=== PATIENT | female | born 1980 | race Caucasian/White ===

== ENCOUNTER 2022-07-13 15:11 | Outpatient (REF) | payer OTHER, SELFPAY ==
--- NOTE | ~2022-07-13 | MM_ITS ---
EXAMINATION: MM SCREENING DIGITAL BREAST TOMOSYNTHESIS, BILATERAL CLINICAL INFORMATION: Screening. Asymptomatic. No prior breast imaging. No known family history breast cancer. COMPARISON: None (current study represents initial baseline exam). TECHNIQUE: Digital breast tomosynthesis is performed in both the craniocaudal and mediolateral oblique views along with computer-aided detection (CAD). Synthesized 2D images are generated from the tomosynthesis. FINDINGS: There are scattered areas of fibroglandular density (ACR BI-RADS breast composition Category b). There are no significant masses, abnormal calcifications, or other abnormalities. The axilla and skin contours are unremarkable. MM/MM tomosynthesis screening BI IMPRESSION: No mammographic evidence of malignancy. ASSESSMENT: BI-RADS 1: Negative RECOMMENDATION: Routine annual mammography screening. This patient's information was entered into a reminder system with a target due date for their next mammogram.
== END 2022-07-13 15:12 | disposition home or self-care (01) ==
LOC: HO.MAMMO 15:11
PROVIDERS: PCP Student in an Organized Health Care Education/Training Program; Visit Provider Student in an Organized Health Care Education/Training Program
DX: Z12.31 Encounter for screening mammogram for malignant neoplasm of breast (principal)
CPT/HCPCS: 77063; 77067

== ENCOUNTER 2024-03-11 14:43 | Outpatient (REF) | payer OTHER, SELFPAY ==
--- NOTE | ~2024-03-11 | MM_ITS ---
EXAMINATION: MM SCREENING DIGITAL BREAST TOMOSYNTHESIS, BILATERAL CLINICAL INFORMATION: Screening. Asymptomatic. COMPARISON: Mammography: This study is compared with prior exams dating back to July 2022. TECHNIQUE: Digital breast tomosynthesis is performed in both the craniocaudal and mediolateral oblique views along with computer-aided detection (CAD). Synthesized 2D images are generated from the tomosynthesis. FINDINGS: There are scattered areas of fibroglandular density (ACR BI-RADS breast composition Category b). There are no significant masses, abnormal calcifications, or other abnormalities. MM/MM tomosynthesis screening BI IMPRESSION: No mammographic evidence of malignancy. ASSESSMENT: BI-RADS BI-RADS 1 - Negative RECOMMENDATION: Routine annual mammography screening. 1 year F/U This examination should not preclude the clinical evaluation of a suspicious palpable abnormality. This patient's information was entered into a reminder system with a target due date for their next mammogram.
== END 2024-03-11 14:44 | disposition home or self-care (01) ==
LOC: HO.MAMMO 14:43
PROVIDERS: PCP Internal Medicine; Visit Provider Midwife
DX: Z12.31 Encounter for screening mammogram for malignant neoplasm of breast (principal)
CPT/HCPCS: 77063; 77067

== ENCOUNTER → 2024-03-11 15:00 | Outpatient (BNV) | payer OTHER, SELFPAY | PROVIDERS: PCP Internal Medicine; Visit Provider Radiology Diagnostic Radiology | DX: Z12.31 Encounter for screening mammogram for malignant neoplasm of breast (principal) | CPT/HCPCS: 77063; 77067 ==

== ENCOUNTER 2024-08-15 08:49 | Outpatient (AMB) | payer OTHER, SELFPAY ==
--- NOTE | 2024-08-15 09:29 | MHC.OFFVIS ---
Vital Signs 08/15/24 09:32 Height 5 ft 3 in Weight 170 lb BMI 30.1 BP 118/66 Blood Pressure Location Lt brachial Position Sitting Pulse 94 Pulse Source Pulse Oximeter Pulse Oximetry (%) 98 Oxygen Delivery Method Room Air Intake Visit Reasons: Psoriatic Arthritis/CM apt Intake Note: Patient presents today for follow up on psoriatic arthistis. Allergies No Known Allergies Allergy (Verified 08/15/24 09:30) HPI HPI Psoriatic Arthritis/CM apt: Details: She recently had increased joint pains, which was treated with a short course of prednisone. She recalls receiving prednisone 5 mg tablets for a few days. She feels well at this time. Psoriasis has not gotten worse. She has a couple of lesions on her arms, which she treats with topical steroid. She follows with her rn transfer. No recent infections. Review of Systems Const All systems reviewed & are unremarkable except as noted in HPI and below Physical Exam Vital Signs: Last Vital Signs Pulse 94 08/15/24 09:32 BP 118/66 08/15/24 09:32 Pulse Ox 98 08/15/24 09:32 Oxygen Delivery Method Room Air 08/15/24 09:32 BMI result Body Mass Index 30.1 Const Other: General: Comfortable CVS: RRR Respiratory: clear to auscultation bilaterally. Good respiratory effort Skin: No lesions seen MSK: No tenderness on palpation. No synovitis. Good range of motion of upper extremities and lower extremities. Assessment & Plan Assessment & Plan (1) Psoriatic arthritis: Comment: Controlled on Cimzia 200 mg subcutaneous injection every other week Code(s): L40.50 - Arthropathic psoriasis, unspecified Category: Medical Plan: Labs for disease and drug monitoring ordered on high-risk medication Continue Cimzia 200 mg subcutaneous injection every other week [facility] Return to clinic in 3 months (2) Other senior living (current) drug therapy: Code(s): Z79.899 - Other senior living (current) drug therapy Category: Medical Plan: See above Orders: Orders Alanine Aminotransferase Today L40.50 - Arthropathic psoriasis, unspecified, Z79.899 - Other senior living (current) drug therapy Aspartate Amino Transferase Today L40.50 - Arthropathic psoriasis, unspecified, Z79.899 - Other termite renewal inspector (current) drug therapy T Spot TB Today L40.50 - Arthropathic psoriasis, unspecified, Z79.899 - Other termite renewal inspector (current) drug therapy Complete Blood Count Auto Diff Today L40.50 - Arthropathic psoriasis, unspecified, Z79.899 - Other senior living (current) drug therapy Creatinine Today L40.50 - Arthropathic psoriasis, unspecified, Z79.899 - Other senior living (current) drug therapy Erythrocyte Sedimentation Rate Today L40.50 - Arthropathic psoriasis, unspecified, Z79.899 - Other termite renewal inspector (current) drug therapy Hepatitis B,C Profile Today L40.50 - Arthropathic psoriasis, unspecified, Z79.899 - Other termite renewal inspector (current) drug therapy C Reactive Protein Today L40.50 - Arthropathic psoriasis, unspecified, Z79.899 - Other senior living (current) drug therapy Coding Level of Care Code Est Pt Level 4 (82067) Complex EM visit Add On G2211 Diagnoses Psoriatic arthritis L40.50 Other termite renewal inspector (current) drug therapy Z79.899
[2024-08-15 09:32] VITALS: BP 118/66; PULSE 94; O2SAT 98; BMI 30.1
== END 2024-08-15 09:37 | disposition home or self-care (01) ==
PROVIDERS: PCP Internal Medicine; Visit Provider Internal Medicine Rheumatology
DX: L40.50 Arthropathic psoriasis, unspecified (principal); Z79.899 Other long term (current) drug therapy
CPT/HCPCS: 99214

== ENCOUNTER 2024-08-15 08:49 | Outpatient (REF) | payer OTHER, SELFPAY ==
[2024-08-15 13:49] LABS: MANUAL DIFF FLAG NO
[2024-08-15 14:42] LABS: Basophils Percent Auto 0.2 % (0-2); Eosinophils Percent Auto 0.2 % (0-4); Hematocrit 36.5 % (37.0-47.0); Hemoglobin 12.2 g/dl (12.0-16.0); Imm Gran Abs Auto 0.01 X10*3/uL (0.00-0.03); Imm Gran Pct Auto 0.2 % (0.0-0.4); Lymphocytes Absolute Auto 1.9 X10*3/uL (1.2-4.9); Lymphocytes Percent Auto 32.7 % (20-40); Mean Corpuscular HGB Conc 33.4 g/dl (31.0-35.0); Mean Corpuscular Hemoglobin 32.3 pg (27.0-33.0); Mean Corpuscular Volume 96.6 fL (80.0-98.0); Mean Platelet Volume 10.3 fL (9.4-12.3); Monocytes Absolute Auto 0.5 X10*3/uL (0.1-1.2); Monocytes Percent Auto 8.5 % (2-11); Neutrophils Absolute Auto 3.4 x10*3/uL (2.0-8.3); Neutrophils Percent Auto 58.2 % (45-73); Platelet Count 205 X10*3/uL (160-400); Red Blood Count 3.78 X10*6/uL (4.20-5.50); White Blood Count 5.9 X10*3/uL (4.8-10.8)
[2024-08-15 15:07] LABS: Alanine Aminotransferase 16 U/L (0-31); Aspartate Amino Transferase 26 U/L (5-31); C Reactive Protein < 0.10 mg/dL (< or = 0.50); Estimated Glomerular Filt Rate > 60
[2024-08-15 16:01] LABS: Erythrocyte Sedimentation Rate 16 MM/HR (0-20)
[2024-08-16 03:38] LABS: HBS Num1 12.05 mIU/mL (0-7.99); Hepatitis B Core Antibody Nonreactive (Nonreactive); Hepatitis B Surface Antigen Negative (Negative); ~HepC Num1 0.27 S/CO (0.00-0.79); ~Hepatitis B Surface Antibody REACTIVE (Nonreactive); ~Hepatitis C Antibody Nonreactive (Nonreactive)
[2024-08-18 07:09] LABS: TS Negative Control Passed; TS Panel A 0; TS Panel B 0; TS Positive Control Passed; TSpotTB Negative (Negative)
== END 2024-08-15 08:50 | disposition home or self-care (01) ==
LOC: HO.LAB 08:49
PROVIDERS: PCP Internal Medicine; Visit Provider Internal Medicine Rheumatology
DX: L40.50 Arthropathic psoriasis, unspecified (principal); Z79.899 Other long term (current) drug therapy
CPT/HCPCS: 36415; 82565; 84450; 84460; 85025; 85652; 86140; 86481; 86704; 86706; 86803; 87340

== ENCOUNTER 2024-11-13 14:02 | Outpatient (AMB) | payer OTHER, SELFPAY ==
--- NOTE | 2024-11-13 14:04 | MHC.OFFVIS ---
Vital Signs 11/13/24 14:05 Height 5 ft 3 in Weight 174 lb 13.225 oz BMI 31.0 BP 140/80 H Blood Pressure Location Lt brachial Position Sitting Pulse 78 Pulse Source Pulse Oximeter Pulse Oximetry (%) 98 Oxygen Delivery Method Room Air Intake Visit Reasons: 3 mo follow up Intake Note: Patient presents today for follow up on psoriatic arthistis. Allergies No Known Allergies Allergy (Verified 11/13/24 14:05) HPI HPI 3 mo follow up: Details: She feels well. She has developed bumps on her left arm extensor surface of unclear etiology. Topical steroid is not effective. No recent infections. She has seen [facility] in the past who has prescribed topical steroid for psoriasis. At this time her arthritis and psoriasis is under control. Review of Systems Const All systems reviewed & are unremarkable except as noted in HPI and below Physical Exam Vital Signs: Last Vital Signs Pulse 78 11/13/24 14:05 BP 140/80 H 11/13/24 14:05 Pulse Ox 98 11/13/24 14:05 Oxygen Delivery Method Room Air 11/13/24 14:05 BMI result Body Mass Index 31.0 Const Other: General: Comfortable CVS: RRR Respiratory: clear to auscultation bilaterally. Good respiratory effort Skin: Small scaly patches left external surface of elbow. She has multiple papules on extensor surface of forearm left side. MSK: No tenderness on palpation of any joint. No synovitis or dactylitis. Good range of motion of upper extremities and lower extremities. Assessment & Plan Assessment & Plan (1) Psoriatic arthritis: Comment: Controlled on Cimzia and methotrexate. Rheumatology history: Psoriatic arthritis. She had developed plantar palmar pustulosis. Enbrel 5700-2964 effective but discontinued due to . Failed Humira 2016 and methotrexate 2018. Cimzia and methotrexate 2019- Code(s): L40.50 - Arthropathic psoriasis, unspecified Category: Medical Plan: Labs for disease and drug monitoring ordered on high-risk medication Continue methotrexate 20 mg once weekly Continue folic acid 1 mg daily Continue Cimzia 200 mg subcutaneous injection every other week Return to clinic in 3 months (2) Other oysterman (current) drug therapy: Code(s): Z79.899 - Other oysterman (current) drug therapy Category: Medical Plan: See above Orders: Orders Alanine Aminotransferase Today Z79.60 - senior living (current) use of unspecified immunomodulators and immunosuppressants Creatinine Today Z79.60 - senior living (current) use of unspecified immunomodulators and immunosuppressants Erythrocyte Sedimentation Rate Today L40.50 - Arthropathic psoriasis, unspecified C Reactive Protein Today L40.50 - Arthropathic psoriasis, unspecified, Z79.899 - Other [facility] (current[facility] drug therapy Aspartate Amino Transferase Today Z79.60 - senior living (current) use of unspecified immunomodulators and immunosuppressants Complete Blood Count Auto Diff Today Z79.60 - joint terminal attack controller (current) use of unspecified immunomodulators and immunosuppressants Medications: Refilled Cimzia (certolizumab pegol) 200 mg subcut Q2W 1 ea 2RF NS methotrexate sodium 20 mg (8 x 2.5 mg) PO QWEEK 96 tabs 0RF Coding Level of Care Code Est Pt Level 4 (63333) Complex EM visit Add On G2211 Diagnoses Psoriatic arthritis L40.50 Other oysterman (current) drug therapy Z79.895
[2024-11-13 14:05] VITALS: BP 140/80; PULSE 78; O2SAT 98; BMI 31.0
--- OUTSIDE RECORDS SUMMARY | 2024-11-13 16:55 | XMS_ITS | Clinical Summary ---
Author Organization [facility] Address [address] [place] [address] Care Team Providers Care Registration Manager Name Role Phone Unavailable Primary Care Provider Unavailabl e Social History Tobacco Use Types Packs/Day Years Used Date Smoking Tobacco: Never Assessed Sex and Gender Information Value Date Recorded Sex Assigned at Not on file Gender Identity Not on file Sexual Orientation Not on file Plan of Treatment Health Maintenance Due Date Last Done Comments Hepatitis C Virus Screening 1982 HIV Screening 1995 DTaP/Tdap/Td Vaccines (1 - Tdap) 2001 Hepatitis B Vaccines (1 of 3 - 19+ 3-dose series) 2001 COVID-19 Vaccine (2023-2 5 season) 2024 HPV Vaccines Aged Out No longer eligi ble based on patient's age to complete this topic Pneumococcal Vaccine: Pediat gee (0-5 Years) and At-Risk Patients (6 to 49 Years) Aged Out No longer eligible b ased on patient's age to complete this topic
--- OUTSIDE RECORDS SUMMARY | 2024-11-13 16:55 | XMS_ITS | Clinical Summary ---
Author Organization [facility] [address] Address [address] [place] [address] Phone Care Team Providers Care Marketing Designer Name Role Phone Yesika Jordan MD Primary Care Provider [phone] Allergies No known active allergies Medications albuterol HFA (PROAIR HFA ; PROVENTIL HFA ; VENTOLIN HFA) 90 mcg/actuation inhaler Inhale 2 Puffs into the lungs every 4 hours as needed for Cough or Wheezing. 01/11/20 24 Active celecoxib (CeleBREX) 200 mg capsule 12/15/19 24 Active certolizumab pegol (Cimzia) 400 mg/2 mL (200 mg/mL x 2) syringe kit Inject 200 mg into the skin every 14 days. 08/04/20 21 Active certolizumab pegol (Cimzia) 400 mg/2 mL (200 mg/mL x 2) syringe kit 07/04/20 23 Active cetirizine (ZyrTEC) 10 mg tablet TAKE 1 TABLET BY MOUTH EVERY DAY 09/15/19 24 Active folic acid (FOLVITE) 1 mg tablet 01/03/20 24 Active LORazepam (ATIVAN) 0.5 mg tablet Take 1-2 Tablets by mouth every 6 hours as needed for Anxiety. 01/11/20 24 Active methotrexate 2.5 mg tablet 01/09/20 24 Active sertraline (ZOLOFT) 100 mg tablet TAKE 1 TABLET BY MOUTH DAILY. 06/06/20 24 Active tapinarof (Vtama) 1 % cream Apply topically. Active levonorgestreL 17.5 mcg/24 hr (5 yrs) 19.5 mg intrauterine device IUD by Intrauterine route. Active methocarbamoL (ROBAXIN) 500 mg tablet Take 1-2 tablets (500-1,000 mg total) by mouth at bedtime as needed for muscle spasms. 60 tablet 2 10/15/19 25 Active methocarbamoL (ROBAXIN) 500 mg tablet TAKE 1-2 TABLETS (500-1000MG) BY MOUTH AT BEDTIME NEEDED FOR MUSCLE PAIN 60 tablet 2 07/19/20 24 2024 Discontinued Active Problems Problem Noted Date Diagnosed Date Psoriatic arthritis 06/07/2024 Overview (06/07/2024): Enbrel through dermatology 2014-, stopped due to . Humira started 2016, ineffective. Methotrexate started 2018, ineffective and stopped. , restart Enbrel through rheumatology Hepatitis B core antibody positive 06/17/2021 Overview (06/07/2024): 06/2021- followup recheck ordered. Generalized anxiety disorder with panic attacks 02/28/2020 Situational anxiety 10/14/2016 Cervical radiculitis 07/13/2016 Overview (06/07/2024): c5-6 disc herniation Asthma, mild intermittent 08/19/2011 Encounters Date Type Department Care Team Description 09/18/2024 8:45 AM EST Office Visit Adult Medicine [address] [address] Yesika Jordan MD Mild intermittent asthma, unspecified whether complicated (Primary Dx); Psoriatic arthritis ([facility]/HCC); Hypertriglyceridemia from Last 3 Months Immunizations Name Administration Dates Next Due Influenza Quadravalent, MDCK , 0.5ml, preservative free (Flucelvax) 6mo and older 06/11/2018 Influenza trivalent, with pr eservative (Fluzone; Afluria) 6mo and older 06/22/2024,07/06/2020 Influenza, Unspecified 07/06/2023,07/06/2020 Moderna SARS-CoV-2 COVID-19, mRNA, LNP-S, preservative free 08/22/2021 Td Tetanus diptheria (Tdvax) 7yo and older 06/11 Tdap Tetanus diptheria acell ular pertussis (Boostrix; Adacel) 7yo and older 09/18/2017 Surgical History Surgery Date Site/Laterality Comments COLONOSCOPY 2010 PROCEDURE: ME COLONOSCOPY STOMA DX INCLUDING COLLJ SPEC SPX; COMMENT: juvenile polyps hx Medical History Medical History Date Comments 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 Mild intermittent asthma DX:Mild intermittent asthma Psoriasis 08/19/2011 DX:Psoriasis Psoriatic arthritis (CMS/HCC) DX :Psoriatic arthritis (HCC) Cervical radiculitis 07/13/2016 DX:Cervical radiculitis; COMMENT: c5-6 disc herniation Family History Medical History Relation Name Comments Crohn's disease Brother Hypertension Brother Other: Psoriasis Maternal Grandfather Depression Mother Hypertension Mother Hypertension Sister Relation Name Status Comments Brother Alive crohns disease Father Alive diabetes Maternal Grandfather [place] Maternal Grandmother Alive heart p roblems Mother Alive high chol, HTN, borderline diabetes > resolved with weight loss Paternal Grandfather unknown Paternal Grandmother Alive unknown Sister Alive healthy Son Alive healthy Social History Tobacco Use Types Packs/Day Years Used Date Smoking Tobacco: Former Cigarettes Q uit: 09/11/2017 Smokeless Tobacco: Never Tobacco Cessation:Counseling Given: Not Answered Alcohol Use Standard Drinks/Week Comments Yes 1.7 (1 standard drink = 0.6 oz p ure alcohol) Comments Unknown Sex and Gender Information Value Date Recorded Sex Assigned at Not on file Legal Sex Female 12:28 AM EST Gender Identity Not on file Sexual Orientation Not on file Obstetrics History Last Filed Vital Signs Vital Sign Reading Time Taken Comments Blood Pressure 124/72 09/18/2024 8:39 AM EST Pulse 97 09/18/2024 8:39 AM EST Temperature 36.9 ??C (98.5 ??F) 09/18/2024 8:39 AM ES T Respiratory Rate 12 09/18/2024 8:37 AM EST Oxygen Saturation - - Inhaled Oxygen Concentration - - Weight 78 kg (172 lb) 09/18/2024 8:37 AM EST Height 160 cm (5' 3 ) 09/18/2024 8:37 AM EST Body Mass Index 30.47 09/18/2024 8:37 AM EST Plan of Treatment Upcoming Encounters Date Type Department Care Team (Late st Contact Info) Description 07/17/2025 8:00 AM EST Office Visit Adult Medicine [facility] [address] [place] [address] Yesika Jordan MD [address] [facility] [place] [address] [id number] Health Maintenance Due Date Last Done Comments Hepatitis B Vaccines (1 of 3 - 19+ 3-dose series) 2001 Pneumococcal Vaccine: Pediatrics (0 to 5 Years) and At-Risk Patients (6 to 64 Years) (1 of 2 - PCV) 2001 Colorectal Cancer Screening: Colonoscopy 08/20/2022 02/15/2011 Hepatitis C Screening 08/20/2022 Social Influencers of Health Screening 08/20/2022 COVID-19 Vaccine ( season) 2024 09/08/2021, 08/22/2021, 12/04/2020, Additional history exists Depression Screening 07/16/2025 07/16/2024 Cervical Cancer Screening: Pap Smear 10/17/2025 10/17/2022, 07/22/2014, 07/22/2014 Breast Cancer Screening 03/04/2026 03/04/2024 DTaP,Tdap,and Td Vaccines (3 - Td or Tdap) 09/18/2027 09/18/2017, 06/11/2007 Cholesterol Screening (Lipid Panel) 07/16/2029 07/16/2024 HIV Screening Completed 08/20/2019 Influenza Vaccine Completed 06/22/2024, , 07/06/2023, Additional history exists HIB Vaccines Aged Out No longer eligi ble based on patient's age to complete this topic HPV Vaccines Aged Out No longer eligi ble based on patient's age to complete this topic Hepatitis A Vaccines Aged Out No long er eligible based on patient's age to complete this topic IPV Vaccines Aged Out No longer eligi ble based on patient's age to complete this topic MMR Vaccines Aged Out No longer eligi ble based on patient's age to complete this topic Meningococcal ACWY Vaccine Aged Out N o longer eligible based on patient's age to complete this topic Meningococcal B Vacine Aged Out No lo nger eligible based on patient's age to complete this topic RSV Immunization Patients Under 20 months Aged Out No longer eligible based on patient's age to complete this topic Varicella Vaccines Aged Out No longer eligible based on patient's age to complete this topic Procedures Procedure Name Priority Date/Time Associated Diagnosis Comments LIPID PANEL WITH REFLEX TO DIRECT LDL Routine 07/16/2024 10:25 AM EST Screening for endocrine, metabolic, and immunity disorder HIV SCREENING Routine 08/20/2019 HPV Routine 07/22/2014 COLONOSCOPY Routine 02/15/2011 from Last 3 Months or Most Recently Relevant to Health Maintenance Results * (ABNORMAL) Lipid panel with reflex to direct LDL (07/16/2024 10:25 AM EST) Cholesterol 169 0 - 200 mg/dL LAB CHEMISTRY METHOD 07/16/2024 4:17 PM [facility] Triglycerides 225(H) 0 - 150 mg/dL LAB CHEMISTRY METHOD 07/16/2024 4:17 PM [facility] HDL 50 >=40 mg/dL LAB CHEMISTRY METHOD 07/16/2024 4:17 PM [facility] LDL Calculated 74 0 - 100 mg/dL LAB CHEMISTRY METHOD 07/16/2024 4:17 PM [facility] VLDL Cholesterol Yovanny 45 mg/dL LAB CHEMISTRY METHOD 07/16/2024 4:17 PM [facility] Non HDL Chol. (LDL+VLDL) 119 <145 mg/dL LAB CHEMISTRY METHOD 07/16/2024 4:17 PM [facility] Chol/HDL Ratio 3.4 0.0 - 4.4 LAB CHEMISTRY METHOD 07/16/2024 4:17 PM [facility] Blood Venous blood specimen / Unknown Venipuncture / Unknown 07/16/2024 10:25 AM EST 07/16/2024 10:25 AM EST Xin ALDRICH LAB BLOOD ORDERABLES Final Result [facility] [address] [place] [address], [place] [phone] * HIV Screening (08/20/2019) HIV Screening Abstracted Historical Provider HEALTH MAINTENANCE Final Result * Cervical Cancer Screening: HPV (07/22/2014) Cervical Cancer Screening: HPV No interpreta tion,abstr acted Historical Provider HEALTH MAINTENANCE Final Result * Colonoscopy (02/15/2011) Colonoscopy No interpreta tion,abstr acted Anatomical Region Laterality Modality Other Historical Provider HEALTH MAINTENANCE Final Result from Last 3 Months or Most Recently Relevant to Health Maintenance Insurance [place] [address] Care Teams Marketing Designer Relationship Specialty Start Date End Date Yesika Jordan MD [address] [place] [address] PCP - General 03/07/24
== END 2024-11-13 14:43 | disposition home or self-care (01) ==
PROVIDERS: PCP Internal Medicine; Visit Provider Internal Medicine Rheumatology
DX: L40.50 Arthropathic psoriasis, unspecified (principal); Z79.899 Other long term (current) drug therapy
CPT/HCPCS: 99214

== ENCOUNTER 2024-11-13 14:02 | Outpatient (REF) | payer OTHER, SELFPAY ==
--- OUTSIDE RECORDS SUMMARY | 2024-11-13 17:53 | XMS_ITS | Clinical Summary ---
Author Organization [facility] [address] [facility] [address] Address [address] [place] [address] Phone Care Team Providers Care Assembler Surgical Garment Name Role Phone Yesika Jordan MD Primary Care Provider [phone]- [phone] Allergies No known active allergies Medications albuterol [...] 8:45 AM EST Office Visit Adult Medicine [address] [address] Yesika Jrodan MD Mild intermittent asthma, unspecified whether complicated (Primary Dx); Psoriatic arthritis ([facility]/HCC); Hypertriglyceridemia from Last 3 Months Immunizations Name [...] Surgery Date Site/Laterality Comments COLONOSCOPY 2010 PROCEDURE: [place] COLONOSCOPY STOMA DX INCLUDING COLLJ SPEC SPX; [...] crohns disease Father Alive diabetes Maternal Grandfather [place] Maternal Grandmother Alive heart p roblems Mother [...] 8:00 AM EST Office Visit Adult Medicine [facility] [address] [facility] [place] [address] Yesika Jordan MD [address] [facility] [place] [address] Health Maintenance Due Date Last Done Comments [...] mg/dL LAB CHEMISTRY METHOD 07/16/2024 4:17 PM [facility] Triglycerides 225(H) 0 - 150 mg/dL LAB CHEMISTRY METHOD 07/16/2024 4:17 PM [facility] HDL 50 >=40 mg/dL LAB CHEMISTRY METHOD 07/16/2024 4:17 PM [facility] LDL Calculated 74 0 - 100 mg/dL LAB CHEMISTRY METHOD 07/16/2024 4:17 PM [facility] VLDL Cholesterol Yovanny 45 mg/dL LAB CHEMISTRY METHOD 07/16/2024 4:17 PM [facility] Non HDL Chol. (LDL+VLDL) 119 <145 mg/dL LAB CHEMISTRY METHOD 07/16/2024 4:17 PM [facility] Chol/HDL Ratio 3.4 0.0 - 4.4 LAB CHEMISTRY METHOD 07/16/2024 4:17 PM [facility] Blood Venous blood specimen / Unknown Venipuncture / Unknown 07/16/2024 10:25 AM EST 07/16/2024 10:25 AM EST Xin ALDRICH LAB BLOOD ORDERABLES Final Result [facility] [address] [place] [address], [place] [phone] * HIV Screening (08/20/2019) HIV Screening Abstracted [...] Most Recently Relevant to Health Maintenance Insurance [facility] Care Teams Assembler Surgical Garment Relationship Specialty Start Date End Date Yesika Jordan MD [address] [place] [address] PCP - General 03/07/24
--- OUTSIDE RECORDS SUMMARY | 2024-11-13 17:53 | XMS_ITS | Clinical Summary ---
Author Organization [facility] Address [address] [place] [address] Care Team Providers Care Windows Laptop Technician Name Role Phone Unavailable Primary Care Provider [...]
[2024-11-13 17:55] LABS: MANUAL DIFF FLAG NO
[2024-11-13 18:13] LABS: Alanine Aminotransferase 12 U/L (0-31); Aspartate Amino Transferase 21 U/L (5-31); C Reactive Protein < 0.10 mg/dL (< or = 0.50); Estimated Glomerular Filt Rate > 60
[2024-11-13 18:30] LABS: Basophils Percent Auto 0.2 % (0-2); Eosinophils Percent Auto 0.2 % (0-4); Hemoglobin 11.7 g/dl (12.0-16.0); Imm Gran Abs Auto 0.01 X10*3/uL (0.00-0.03); Imm Gran Pct Auto 0.2 % (0.0-0.4); Lymphocytes Absolute Auto 1.9 X10*3/uL (1.2-4.9); Lymphocytes Percent Auto 45.6 % (20-40); Mean Corpuscular HGB Conc 33.4 g/dl (31.0-35.0); Mean Corpuscular Hemoglobin 32.6 pg (27.0-33.0); Mean Corpuscular Volume 97.5 fL (80.0-98.0); Mean Platelet Volume 10.8 fL (9.4-12.3); Monocytes Absolute Auto 0.5 X10*3/uL (0.1-1.2); Monocytes Percent Auto 11.7 % (2-11); Neutrophils Absolute Auto 1.7 x10*3/uL (2.0-8.3); Neutrophils Percent Auto 42.1 % (45-73); Platelet Count 198 X10*3/uL (160-400); Red Blood Count 3.59 X10*6/uL (4.20-5.50); Red Cell Distribution Width 12.5 % (11.0-16.0); White Blood Count 4.1 X10*3/uL (4.8-10.8)
[2024-11-13 18:50] LABS: Erythrocyte Sedimentation Rate 11 MM/HR (0-20)
== END 2024-11-13 14:03 | disposition home or self-care (01) ==
LOC: HO.HKASLDS 14:02
PROVIDERS: PCP Internal Medicine; Visit Provider Internal Medicine Rheumatology
DX: L40.50 Arthropathic psoriasis, unspecified (principal); Z79.60 Long term (current) use of unspecified immunomodulators and immunosuppressants; Z79.899 Other long term (current) drug therapy
CPT/HCPCS: 36415; 82565; 84450; 84460; 85025; 85652; 86140

== ENCOUNTER 2025-01-22 14:53 | Outpatient (AMB) | payer OTHER, SELFPAY ==
--- OUTSIDE RECORDS SUMMARY | 2025-01-22 14:56 | XMS_ITS | Clinical Summary ---
Author Organization [facility] Address [address] [place] [address] Care Team Providers Care Chicken Picker Name Role Phone Unavailable Primary Care Provider Unavailabl e Social History Tobacco Use Types Packs/Day Years Used Date Smoking Tobacco: Never Assessed Comments Unknown Sex and Gender Information Value Date Recorded Sex Assigned at Not on file Legal Sex Female 11:32 AM EDT Gender Identity Not on file Sexual Orientation [...]
--- OUTSIDE RECORDS SUMMARY | 2025-01-22 14:56 | XMS_ITS | Clinical Summary ---
Author Organization [facility] [address] [facility] l[address] Address [address] [place] [address] Phone Care Team Providers Care Auto Wheel Alignment Specialist Name Role Phone Yesika Jordan MD Primary Care Provider Allergies No known active allergies Medications albuterol HFA (PROAIR HFA ; PROVENTIL HFA ; VENTOLIN HFA) 90 mcg/actuation inhaler Inhale 2 Puffs into the lungs every 4 hours as needed for Cough or Wheezing. 4 Active celecoxib (CeleBREX) 200 mg capsule 4 Active certolizumab pegol (Cimzia) 400 mg/2 mL (200 mg/mL x 2) syringe kit Inject 200 mg into the skin every 14 days. 1 Active certolizumab pegol (Cimzia) 400 mg/2 mL (200 mg/mL x 2) syringe kit 3 Active cetirizine (ZyrTEC) 10 mg tablet TAKE 1 TABLET BY MOUTH EVERY DAY 4 Active folic acid (FOLVITE) 1 mg tablet 4 Active LORazepam (ATIVAN) 0.5 mg tablet Take 1-2 Tablets by mouth every 6 hours as needed for Anxiety. 4 Active methotrexate 2.5 mg tablet 4 Active tapinarof (Vtama) 1 % cream Apply topically. Act maira levonorgestreL 17.5 mcg/24 hr (5 yrs) 19.5 mg intrauterine device IUD by Intrauterine route. Active methocarbamoL (ROBAXIN) 500 mg tablet Take 1-2 tablets (500-1,000 mg total) by mouth at bedtime as needed for muscle spasms. 60 tablet 2 5 Active sertraline (ZOLOFT) 100 mg tablet TAKE ONE (1) TABLET BY MOUTH EVERY DAY 90 tablet 1 5 Active Active Problems Problem Noted Date Diagnosed Date Psoriatic arthritis ([facility] V24, [facility] V28) 0 06/07/2024 Overview (06/07/2024): Enbrel through dermatology 2014-, stopped due to . Humira started 2016, ineffective. Methotrexate started 2018, ineffective and stopped. , restart Enbrel through rheumatology Hepatitis B core antibody positive 06/17/2021 Overview (06/07/2024): 06/2021- followup recheck ordered. 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 Mild intermittent asthma DX:Mild intermittent asthma Psoriasis 08/19/2011 DX:Psoriasis Psoriatic arthritis (CMS/HCC V24, CMS/HCC V28) DX:Psoriatic arthritis (HCC) Cervical radiculitis 07/13/2016 DX:Cervical radiculitis; COMMENT: c5-6 disc herniation Family History Medical History Relation Name Comments Crohn's disease Brother Hypertension Brother Other: Psoriasis Maternal Grandfather Depression Mother Hypertension Mother Hypertension Sister Relation Name Status Comments Brother Alive crohns disease Father Alive diabetes Maternal Grandfather [place] Maternal Grandmother Alive heart p roblems Mother [...] 8:00 AM EST Office Visit Adult Medicine [facility] [address] [place] [address] Yesika Jordan MD [address] [place], [place] Health Maintenance Due Date Last Done Comments Hepatitis B Vaccines (1 of 3 - 19+ 3-dose series) 2001 Pneumococcal Vaccine: Pediatrics (0 to 5 Years) and At-Risk Patients (6 to 64 Years) (1 of 2 - PCV) 2001 Hepatitis C Screening 08/20/2022 Social Influencers of Health Screening 08/20/2022 COVID-19 Vaccine ( season) 2024 09/08/2021, 08/22/2021, 12/04/2020, Additional history exists Depression Screening 07/16/2025 07/16/2024 Cervical Cancer Screening: Pap Smear 10/17/2025 10/17/2022, 07/22/2014, 07/22/2014 Breast Cancer Screening 03/04/2026 03/04/2024 DTaP,Tdap,and Td Vaccines (3 - Td or Tdap) 09/18/2027 09/18/2017, 06/11/2007 Cholesterol Screening (Lipid Panel) 07/16/2029 07/16/2024 Colorectal Cancer Screening: Colonoscopy 01/16/2035 01/16/2025, 02/15/2011 HIV Screening Completed 08/20/2019 Influenza Vaccine Completed [...] age to complete this topic Meningococcal B Vaccine Aged Out No l onger eligible based on patient's age to complete this topic RSV Immunization Patients Under 20 months Aged Out No longer eligible based on patient's age to complete this topic Varicella Vaccines Aged Out No longer eligible based on patient's age to complete this topic Procedures Procedure Name Priority Date/Time Associated Diagnosis Comments EXTERNAL COLONOSCOPY REPORT Routine 01/16/2025 12:55 PM EDT EXTERNAL CLINICAL LAB Routine 11/15/2024 8:13 AM EST LIPID PANEL WITH REFLEX TO DIRECT LDL Routine 07/16/2024 10:25 AM EST Screening for endocrine, metabolic, and immunity disorder HIV SCREENING Routine 08/20/2019 HPV Routine 07/22/2014 from Last 3 Months or Most Recently Relevant to Health Maintenance Results * External Colonoscopy Report (01/16/2025 12:55 PM EDT) Anatomical Region Laterality Modality Endoscopy us Historical Provider GI~PROCEDURE ORDERABLES F inal Result * External clinical lab (11/15/2024 8:13 AM EST) us Historical Provider LAB BLOOD ORDERABLES Maggy l Result * (ABNORMAL) Lipid panel with reflex to direct LDL (07/16/2024 10:25 AM EST) Cholesterol 169 0 - 200 mg/dL LAB CHEMISTRY METHOD 07/16/2024 4:17 PM [facility] Triglycerides 225(H) 0 - 150 mg/dL LAB CHEMISTRY METHOD 07/16/2024 4:17 PM [facility] HDL 50 >=40 mg/dL LAB CHEMISTRY METHOD 07/16/2024 4:17 PM [facility] LDL Calculated 74 0 - 100 mg/dL LAB CHEMISTRY METHOD 07/16/2024 4:17 PM [facility] VLDL Cholesterol Yovanny 45 mg/dL LAB CHEMISTRY METHOD 07/16/2024 4:17 PM [facility] Non HDL Chol. (LDL+VLDL) 119 <145 mg/dL LAB CHEMISTRY METHOD 07/16/2024 4:17 PM [facility] Chol/HDL Ratio 3.4 0.0 - 4.4 LAB CHEMISTRY METHOD 07/16/2024 4:17 PM [facility] Blood Venous blood specimen / Unknown Venipuncture / Unknown 07/16/2024 10:25 AM EST 07/16/2024 10:25 AM EST Xin ALDRICH LAB BLOOD ORDERABLES Final Result [facility] [address] [place] [address], [place] [phone] * HIV Screening (08/20/2019) HIV Screening Abstracted Historical Provider HEALTH MAINTENANCE Final Result * Cervical Cancer Screening: HPV (07/22/2014) Pathologist [facility] Cervical Cancer Screening: HPV No interpreta tion,abstr acted Historical Provider HEALTH MAINTENANCE Final Result from Last 3 Months or Most Recently Relevant to Health Maintenance Insurance [place] [employer] [facility] Care Teams Auto Wheel Alignment Specialist Relationship Specialty Start Date End Date Yesika Jordan MD [address] [place] [address] PCP - General 03/07/24
--- NOTE | 2025-01-22 15:02 | MHC.PC.OV ---
Vital Signs 01/22/25 15:09 Height 5 ft 2.8 in Weight 171 lb BMI 30.5 BP 106/74 Blood Pressure Location Rt brachial Position Sitting Pulse 82 Pulse Source Pulse Oximeter Pulse Oximetry (%) 98 Oxygen Delivery Method Room Air Intake Visit Reasons: Est. Care Intake Note: New patient visit. Production Miner Required: No Allergies No Known Allergies Allergy (Verified 01/22/25 15:04) Medication List - Last Reconciled 01/22/25 by Brissa Garcia PA-C albuterol sulfate 90 mcg/actuation 2 puffs inhalation Q4H PRN calcipotriene 0.005% 1 appl topical QAM cetirizine 10 mg PO DAILY Cimzia (certolizumab pegol) 200 mg subcut Q2W NS folic acid 1 mg PO DAILY lorazepam 0.5 - 1 mg PO Q6H PRN methocarbamol 500 mg PO BID methotrexate sodium 20 mg (8 x 2.5 mg) PO QWEEK mometasone 0.1% appl topical sertraline mg PO Tobacco use date assessed: 01/22/25 Dental Screening Dental Screen Date: 01/22/25 Did you have a dental visit in the last 12 months?: Yes Did you have a dental problem in the last 6 months where you did not have access to dental care?: No Was dental information given to patient?: Patient has dentist HPI Est. Care HPI Details Patient is a 44-year-old female with a significant past medical history of psoriatic arthritis, anxiety and depression, presenting today to [facility]. She is transferring from [place]. CV: Blood pressure today in the office is 106/74. Psych: On sertraline and lorazepam as needed. She states it is mostly anxiety. Denies any SI/HI. Rheum: Follows with Rheumatology and [facility]. 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 1. Little interest or pleasure in doing things: not at all 2. Feeling down, depressed, or hopeless: not at all 3. Trouble falling or staying asleep, or sleeping too much: several days 4. Feeling tired or having little energy: not at all 5. Poor appetite or overeating: not at all 6. Feeling bad about yourself - or that you are a failure or have let yourself or your family down: not at all 7. Trouble concentrating on things, such as reading the newspaper or watching television: not at all 8. Moving or speaking so slowly that other people could have noticed. Or the opposite - being so fidgety or restless that you have been moving around a lot more than usual: not at all 9. Thoughts that you would be better off or of hurting yourself in some way: not at all Total score: 1 Depression Screening Interpretation: Negative Depression Screening Done: Yes 26231 - PHQ-9 Billing: Yes Source: Developed by Drs. Kwan Mccarty, Liliana Duran, Saeid Harris and colleagues, with an educational jie from [email or web address]. Thrive Questionnaire Date Thrive assessed: 01/15/25 I am a: Patient What is your living situation today?: I have a steady place to live Within the past 12 months, did the food you bought not last and you didn't have the money to get more?: Never true Within the past 12 months, did you worry whether your food would run out before you got money to buy more?: Never true Do you have trouble paying for medicines?: No Do you have trouble getting transportation to medical appointments?: No Do you have trouble paying your heating and electricity bill?: No Do you have trouble taking care of your child, family member or friend?: No Do you have trouble with day-to-day activities such as bathing, preparing meals, shopping, managing finances, etc.?: No Are you currently unemployed and looking for a job?: No Are you interested in more education?: No Please select the resources that you would like help with: None Currently or been in a relationship where the following occur: No concerns reported THRIVE Score: 0 AUDIT C Alcohol Use Questionnaire (AUDIT-C) 1. How often do you have a drink containing alcohol?: Monthly or less 2. How many drinks containing alcohol do you have on a typical day when you are drinking?: 1 or 2 3. How often do you have six or more drinks on one occasion?: Never Total Score: 1 STEPHANIE-7 AMB Questionnaire STEPHANIE-7 Date STEPHANIE - 7 assessed: 01/22/25 Feeling nervous, anxious, or on edge: 1 = Several days Not being able to stop or control worryin = Several days Worrying too much about different things: 1 = Several days Trouble relaxin = More than half the days Being so restless that it is hard to sit still: 1 = Several days Becoming easily annoyed or irritable: 1 = Several days Feeling afraid as if something awful might happen: 1 = Several days Total STEPHANIE-7 score (0-4 normal; 5-9 mild; 10-14 moderate; 15-21 severe): 8 Source: Developed by Drs. Kwan Mccarty, Liliana Duran, Saeid Harris and colleagues, with an educational jie from [email or web address]. STEPHANIE-7 Assessment Billing STEPHANIE-7 Assessment Tool: STEPHANIE-7 Assessment 29727 Physical exam (Primary Care) Vital Signs: Last Vital Signs Pulse 82 01/22/25 15:09 BP 106/74 01/22/25 15:09 Pulse Ox 98 01/22/25 15:09 Oxygen Delivery Method Room Air 01/22/25 15:09 BMI result Body Mass Index 30.5 Tobacco/Smoking Status: Tobacco use Status Tobacco use date assessed 01/22/25 01/22/25 15:12 Patient Tobacco Use Status Former Tobacco user 01/22/25 15:09 e-Cigarette/Vaping Use Never Used 01/22/25 15:12 PHQ-9: PHQ-9 Score PHQ-9: Total score 1 01/22/25 15:15 Depression Screening Interpretation: Negative Thrive Assessment: Date of Thrive Assessment Date Thrive assessed 01/15/25 01/22/25 15:03 Currently or been in a relationship where the following occur: No concerns reported Const Orientation/consciousness: patient oriented x3 HENMT Ears: hearing grossly normal bilaterally Neck Thyroid: Thyroid normal Lymphatic: no lymphadenopathy noted Resp Auscultation: clear to auscultation bilaterally Cardio Rate: regular rate Rhythm: regular rhythm Heart sounds: S1 normal heart sound present and S2 normal heart sound present GI Inspection: Yes normal to inspection Palpation (GI): Soft to palpation and Other GI palpation findings present (nontender, no cva tenderness) Auscultation: normoactive bowel sounds Rectal Exam - Female: deferred Skin General skin exam: no rashes or lesions noted Neuro General: patient oriented x3, gait normal and no focal motor deficits Coding Level of Care Code New Pt Level 3 (59652) Complex EM visit Add On G2211 Diagnoses Psoriatic arthritis L40.50 Anemia D64.9 Dyslipidemia E78.5 Generalized anxiety disorder with panic attacks F41.1; F41.0 Mild recurrent major depression F33.0 Additional Codes STEPHANIE-7 Assessment Billing - STEPHANIE-7 Assessment Tool: STEPHANIE-7 Assessment 89308 ([id number]) PHQ-9 - 42870 - PHQ-9 Billing: Yes ([id number]) Assessment & Plan Assessment & Plan (1) Psoriatic arthritis: Comment: Controlled on Cimzia and methotrexate. Rheumatology history: Psoriatic arthritis. She had developed plantar palmar pustulosis. Enbrel 2634-5398 effective but discontinued due to . Failed Humira 2016 and methotrexate 2019. Cimzia and methotrexate 2020- Code(s): L40.50 - Arthropathic psoriasis, unspecified Category: Medical Plan: Currently well-controlled (2) Anemia: Code(s): D64.9 - Anemia, unspecified Category: Medical Plan: Has an IUD, does not get a menses. We will check labs today. (3) Dyslipidemia: Code(s): E78.5 - Hyperlipidemia, unspecified Category: Medical Plan: Reports last lipids at [place] a little elevated. We will check today. (4) Generalized anxiety disorder with panic attacks: Code(s): F41.1 - Generalized anxiety disorder; F41.0 - Panic disorder [episodic paroxysmal anxiety] Category: Medical Plan: Managed with Zoloft and Ativan as needed. Gets 1 prescription a year of the lorazepam. (5) Mild recurrent major depression: Code(s): F33.0 - Major depressive disorder, recurrent, mild Category: Medical Plan: As above Orders: Orders Complete Blood Count Auto Diff Today D64.9 - Anemia, unspecified, E78.5 - Hyperlipidemia, unspecified, F33.0 - Major depressive disorder, recurrent, mild, F41.0 - Panic disorder [episodic paroxysmal anxiety], F41.1 - Generalized anxiety disorder, L40.50 - Arthropathic psoriasis, unspecified Comprehensive [place]. Panel Fast Today D64.9 - Anemia, unspecified, E78.5 - Hyperlipidemia, unspecified, F33.0 - Major depressive disorder, recurrent, mild, F41.0 - Panic disorder [episodic paroxysmal anxiety], F41.1 - Generalized anxiety disorder, L40.50 - Arthropathic psoriasis, unspecified TSH reflex Free T4 Today D64.9 - Anemia, unspecified, E78.5 - Hyperlipidemia, unspecified, F33.0 - Major depressive disorder, recurrent, mild, F41.0 - Panic disorder [episodic paroxysmal anxiety], F41.1 - Generalized anxiety disorder, L40.50 - Arthropathic psoriasis, unspecified Lipid Panel Today D64.9 - Anemia, unspecified, E78.5 - Hyperlipidemia, unspecified, F33.0 - Major depressive disorder, recurrent, mild, F41.0 - Panic disorder [episodic paroxysmal anxiety], F41.1 - Generalized anxiety disorder, L40.50 - Arthropathic psoriasis, unspecified Vitamin B12 and Folate Today D64.9 - Anemia, unspecified, E78.5 - Hyperlipidemia, unspecified, F33.0 - Major depressive disorder, recurrent, mild, F41.0 - Panic disorder [episodic paroxysmal anxiety], F41.1 - Generalized anxiety disorder, L40.50 - Arthropathic psoriasis, unspecified IRON PROFILE Today D64.9 - Anemia, unspecified, E78.5 - Hyperlipidemia, unspecified, F33.0 - Major depressive disorder, recurrent, mild, F41.0 - Panic disorder [episodic paroxysmal anxiety], F41.1 - Generalized anxiety disorder, L40.50 - Arthropathic psoriasis, unspecified Ferritin Today D64.9 - Anemia, unspecified, E78.5 - Hyperlipidemia, unspecified, F33.0 - Major depressive disorder, recurrent, mild, F41.0 - Panic disorder [episodic paroxysmal anxiety], F41.1 - Generalized anxiety disorder, L40.50 - Arthropathic psoriasis, unspecified Medications: New lorazepam 0.5 mg PO DAILY PRN 30 tabs 0RF anxiety valacyclovir (Valtrex) 2,000 mg (2 x 1 gram) PO Q12H 1 day PRN 30 tabs 0RF outbreak
[2025-01-22 15:09] VITALS: BP 106/74; PULSE 82; O2SAT 98; BMI 30.5
== END 2025-01-22 15:44 | disposition home or self-care (01) ==
LOC: HO.HMCFM 14:54
PROVIDERS: PCP Physician Assistant; Visit Provider Physician Assistant
DX: L40.50 Arthropathic psoriasis, unspecified (principal); D64.9 Anemia, unspecified; E78.5 Hyperlipidemia, unspecified; F41.1 Generalized anxiety disorder; F41.0 Panic disorder [episodic paroxysmal anxiety]; F33.0 Major depressive disorder, recurrent, mild

== ENCOUNTER → 2025-01-22 14:53 | Outpatient (BNVA) | payer OTHER, SELFPAY | PROVIDERS: PCP Physician Assistant; Visit Provider Physician Assistant | DX: L40.50 Arthropathic psoriasis, unspecified (principal); D64.9 Anemia, unspecified; E78.5 Hyperlipidemia, unspecified; F41.1 Generalized anxiety disorder; F41.0 Panic disorder [episodic paroxysmal anxiety]; F33.0 Major depressive disorder, recurrent, mild | CPT/HCPCS: 96127 ==

== ENCOUNTER 2025-01-24 06:30 | Outpatient (REF) | payer OTHER, SELFPAY ==
--- OUTSIDE RECORDS SUMMARY | 2025-01-24 06:32 | XMS_ITS | Clinical Summary ---
Author Organization [facility] Address [address] [place] [address] Care Team Providers Care Pedicab Driver Name Role Phone Unavailable Primary Care Provider [...]
[2025-01-24 06:43] LABS: MANUAL DIFF FLAG NO
[2025-01-24 07:42] LABS: Basophils Percent Auto 0.2 % (0-2); Eosinophils Percent Auto 0.2 % (0-4); Hematocrit 38.4 % (37.0-47.0); Hemoglobin 12.8 g/dl (12.0-16.0); Imm Gran Abs Auto 0.01 X10*3/uL (0.00-0.03); Imm Gran Pct Auto 0.2 % (0.0-0.4); Lymphocytes Absolute Auto 1.6 X10*3/uL (1.2-4.9); Lymphocytes Percent Auto 35.3 % (20-40); Mean Corpuscular HGB Conc 33.3 g/dl (31.0-35.0); Mean Platelet Volume 10.2 fL (9.4-12.3); Monocytes Absolute Auto 0.6 X10*3/uL (0.1-1.2); Monocytes Percent Auto 12.4 % (2-11); Neutrophils Absolute Auto 2.3 x10*3/uL (2.0-8.3); Neutrophils Percent Auto 51.7 % (45-73); Platelet Count 223 X10*3/uL (160-400); Red Cell Distribution Width 12.9 % (11.0-16.0); White Blood Count 4.5 X10*3/uL (4.8-10.8)
[2025-01-24 08:11] LABS: Alanine Aminotransferase 22 U/L (0-31); Albumin Level 3.9 g/dL (3.5-5.0); Alkaline Phosphatase 54 U/L (39-117); Anion Gap 13 (12-20); Aspartate Amino Transferase 29 U/L (5-31); Bilirubin Total 0.4 mg/dL (0.0-1.0); Blood Urea Nitrogen 19 mg/dL (9-16); Calcium 8.7 mg/dL (8.4-10.2); Carbon Dioxide 23 mmol/L (22-29); Chloride 106 mmol/L (96-108); Cholesterol 169 mg/dL (<200); Estimated Glomerular Filt Rate > 60; Ferritin 28 ng/mL (10-250); Glucose Fasting 109 mg/dL (60-99); HDL Cholesterol 51 mg/dL (>40); Iron 62 mcg/dL (30-160); LDL Cholesterol Calculated 95 mg/dL (<100); Percent Iron Saturation 19 % (15-50); Potassium 4.1 mmol/L (3.3-5.1); Sodium 138 mmol/L (135-145); TSH reflex Free T4 1.29 uIU/mL (0.32-4.0); Total Iron Binding Capacity 320 mcg/dL (228-428); Total Protein 7.1 g/dL (6.5-8.0); Triglycerides 119 mg/dL (<150); Unsaturated Iron Binding 258 ug/dL
[2025-01-24 08:29] LABS: Folate 13.8 ng/mL (> or = 4.0); Vitamin B12 456 pg/mL (200-900)
== END 2025-01-24 06:31 | disposition home or self-care (01) ==
LOC: HO.LAB 06:30
PROVIDERS: PCP Physician Assistant; Visit Provider Physician Assistant
DX: D64.9 Anemia, unspecified (principal); L40.50 Arthropathic psoriasis, unspecified; E78.5 Hyperlipidemia, unspecified; F41.1 Generalized anxiety disorder; F41.0 Panic disorder [episodic paroxysmal anxiety]; F33.0 Major depressive disorder, recurrent, mild
CPT/HCPCS: 36415; 80053; 80061; 82607; 82728; 82746; 83540; 84443; 85025

== ENCOUNTER 2025-01-30 15:10 | Outpatient (REF) | payer OTHER, SELFPAY ==
--- OUTSIDE RECORDS SUMMARY | 2025-01-30 15:14 | XMS_ITS | Clinical Summary ---
Author Organization [facility] [address] [facility] [address] Address [address] [place] [address] Phone Care Team Providers Care Scale Mechanic Name Role Phone Yesika Jordan MD Primary [...] Problem Noted Date Diagnosed Date Psoriatic arthritis ([facility] V24, [facility] V28) 0 06/07/2024 Overview (06/07/2024): Enbrel through [...] Surgery Date Site/Laterality Comments COLONOSCOPY 2010 PROCEDURE: [place] COLONOSCOPY STOMA DX INCLUDING COLLJ SPEC SPX; [...] crohns disease Father Alive diabetes Maternal Grandfather [place] Maternal Grandmother Alive heart p roblems Mother [...] 8:00 AM EST Office Visit Adult Medicine [facility] [address] [place] [address] Yesika Jordan MD [address] [place], [place] Health Maintenance Due Date Last Done [...] mg/dL LAB CHEMISTRY METHOD 07/16/2024 4:17 PM [facility] Triglycerides 225(H) 0 - 150 mg/dL LAB CHEMISTRY METHOD 07/16/2024 4:17 PM [facility] HDL 50 >=40 mg/dL LAB CHEMISTRY METHOD 07/16/2024 4:17 PM [facility] LDL Calculated 74 0 - 100 mg/dL LAB CHEMISTRY METHOD 07/16/2024 4:17 PM [facility] VLDL Cholesterol Yovanny 45 mg/dL LAB CHEMISTRY METHOD 07/16/2024 4:17 PM [facility] Non HDL Chol. (LDL+VLDL) 119 <145 mg/dL LAB CHEMISTRY METHOD 07/16/2024 4:17 PM [facility] Chol/HDL Ratio 3.4 0.0 - 4.4 LAB CHEMISTRY METHOD 07/16/2024 4:17 PM [facility] Blood Venous blood specimen / Unknown Venipuncture / Unknown 07/16/2024 10:25 AM EST 07/16/2024 10:25 AM EST Xin ALDRICH LAB BLOOD ORDERABLES Final Result [facility] [address] [place] [address], [place] [phone] * HIV Screening (08/20/2019) HIV Screening Abstracted Historical Provider HEALTH MAINTENANCE Final Result * Cervical Cancer Screening: HPV (07/22/2014) Pathologist [facility] Cervical Cancer Screening: HPV No interpreta tion,abstr acted Historical Provider HEALTH MAINTENANCE Final Result from Last 3 Months or Most Recently Relevant to Health Maintenance Insurance [place] [employer] [facility] Care Teams Scale Mechanic Relationship Specialty Start Date End Date Yesika Jordan MD [address] [place] [address] PCP - General 03/07/24
[2025-01-30 15:50] LABS: Estimated Average Glucose 100 mg/dL; Hemoglobin A1c % 5.1 % (<6.0)
== END 2025-01-30 15:11 | disposition home or self-care (01) ==
LOC: HO.LAB 15:10
PROVIDERS: PCP Physician Assistant; Visit Provider Physician Assistant
DX: R73.01 Impaired fasting glucose (principal)
CPT/HCPCS: 36415; 83036

== ENCOUNTER 2025-02-19 14:05 | Outpatient (AMB) | payer OTHER, SELFPAY ==
[2025-02-19 14:08] VITALS: BP 120/66; PULSE 81; O2SAT 98; BMI 30.4
--- NOTE | 2025-02-19 14:08 | A.OFFVIS_ITS ---
Vital Signs 02/19/25 14:08 Height 5 ft 2.8 in Weight 170 lb 6 oz BMI 30.4 BP 120/66 Blood Pressure Location Lt brachial Position Sitting Pulse 81 Pulse Source Pulse Oximeter Pulse Oximetry (%) 98 Oxygen Delivery Method Room Air Intake Visit Reasons: 3 Months Intake Note: Patient presents today for follow up on psoriatic arthritis. Allergies No Known Allergies Allergy (Verified 02/19/25 14:10) HPI HPI 3 Months: Details: She feels well. No new joint pain or swelling. She is working out regularly and has lost 10 lb. She had intermittent knee pain and that has improved as well. No recent infections. 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 Good respiratory effort Skin: Small scaly patches left external surface of elbow. She has multiple papules on extensor surface of forearm left side. MSK: No tenderness on palpation of any joint. No synovitis or dactylitis. Normal range of motion of upper extremities and lower extremities. Assessment & Plan Assessment & Plan (1) Psoriatic arthritis: Comment: In remission on Cimzia and methotrexate. She has chronic mild leukopenia, which may be due to bone marrow suppression from her immunosuppressive therapy. Rheumatology history: Psoriatic arthritis. She had developed plantar palmar pustulosis. Enbrel [id number] effective but discontinued due to . Failed Humira 2016 and methotrexate 2018. 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) drug therapy Category: Medical Plan: See above Orders: Orders Alanine Aminotransferase Today L40.50 - Arthropathic psoriasis, unspecified, Z79.899 - Other petroleum terminal plant operator (current) drug therapy Creatinine Today L40.50 - Arthropathic psoriasis, unspecified, Z79.899 - Other nursing home (current) drug therapy Complete Blood Count Man Dif Today L40.50 - Arthropathic psoriasis, unspecified, Z79.899 - Other petroleum terminal plant operator (current) drug therapy Aspartate Amino Transferase Today L40.50 - Arthropathic psoriasis, unspecified, Z79.899 - Other nursing home (current) drug therapy C Reactive Protein Today L40.50 - Arthropathic psoriasis, unspecified, Z79.899 - Other nursing home (current) drug therapy Erythrocyte Sedimentation Rate Today L40.50 - Arthropathic psoriasis, unspecified, Z79.899 - Other nursing home (current) drug therapy Medications: Refilled Cimzia (certolizumab pegol) 200 mg subcut Q2W 1 ea 2RF NS Coding Level of Care Code Est Pt Level 4 (22053) Complex EM visit Add On G2211 Diagnoses Psoriatic arthritis L40.50 Other nursing home (current) drug therapy Z79.899
--- OUTSIDE RECORDS SUMMARY | 2025-02-19 16:09 | XMS_ITS | Clinical Summary ---
Author Organization [facility] [address] [facility] lding Address [address] [place] [address] Phone Care Team Providers Care Lumber Planer Name Role Phone Yesika Jordan MD Primary Care Provider +1- [phone] Allergies No known active allergies Medications albuterol [...] methotrexate 2.5 mg tablet 01/09/20 24 Active tapinarof (Vtama) 1 % cream Apply topically. Active levonorgestreL 17.5 mcg/24 hr (5 yrs) 19.5 mg intrauterine device IUD by Intrauterine route. Active sertraline (ZOLOFT) 100 mg tablet TAKE ONE (1) TABLET BY MOUTH EVERY DAY 90 tablet 1 11/21/19 25 Active methocarbamoL (ROBAXIN) 500 mg tablet TAKE 1-2 TABLETS (500-1000MG) BY MOUTH EVERY NIGHT AT BEDTIME NEEDED FOR MUSCLE PAIN 90 tablet 02/20/20 25 Active methocarbamoL (ROBAXIN) 500 mg tablet Take 1-2 tablets (500-1,000 mg total) by mouth at bedtime as needed for muscle spasms. 60 tablet 2 10/15/19 25 2024 Discontinued Active Problems Problem Noted Date Diagnosed Date Psoriatic arthritis ([facility] V24, [facility] V28) 0 06/07/2024 Overview (06/07/2024): Enbrel through [...] Surgery Date Site/Laterality Comments COLONOSCOPY 2010 PROCEDURE: [place] COLONOSCOPY STOMA DX INCLUDING COLLJ SPEC SPX; [...] crohns disease Father Alive diabetes Maternal Grandfather [place] Maternal Grandmother Alive heart p roblems Mother [...] 8:00 AM EST Office Visit Adult Medicine [address] [phone] Yesika Jordan MD [address] [place] [address] Health Maintenance Due Date Last Done Comments [...] COLONOSCOPY REPORT Routine 01/16/2025 12:55 PM EDT LIPID PANEL WITH REFLEX TO DIRECT LDL Routine 07/16/2024 10:25 AM EST Screening for endocrine, metabolic, and immunity disorder HIV SCREENING Routine 08/20/2019 HPV Routine 07/22/2014 from Last 3 Months or Most Recently Relevant to Health Maintenance Results * External Colonoscopy Report (01/16/2025 12:55 PM EDT) Anatomical Region Laterality Modality Endoscopy us Historical Provider GI~PROCEDURE ORDERABLES F inal Result * (ABNORMAL) Lipid panel with reflex to direct LDL (07/16/2024 10:25 AM EST) Cholesterol 169 0 - 200 mg/dL LAB CHEMISTRY METHOD 07/16/2024 4:17 PM [facility] Triglycerides 225(H) 0 - 150 mg/dL LAB CHEMISTRY METHOD 07/16/2024 4:17 PM [facility] HDL 50 >=40 mg/dL LAB CHEMISTRY METHOD 07/16/2024 4:17 PM [facility] LDL Calculated 74 0 - 100 mg/dL LAB CHEMISTRY METHOD 07/16/2024 4:17 PM [facility] VLDL Cholesterol Yovanny 45 mg/dL LAB CHEMISTRY METHOD 07/16/2024 4:17 PM [facility] Non HDL Chol. (LDL+VLDL) 119 <145 mg/dL LAB CHEMISTRY METHOD 07/16/2024 4:17 PM [facility] Chol/HDL Ratio 3.4 0.0 - 4.4 LAB CHEMISTRY METHOD 07/16/2024 4:17 PM [facility] Blood Venous blood specimen / Unknown Venipuncture / Unknown 07/16/2024 10:25 AM EST 07/16/2024 10:25 AM EST Xin ALDRICH LAB BLOOD ORDERABLES Final Result SHAUN SALOMON [place] ([facility] H[facility] LAB [address] [place] [address], [place] [phone] * HIV Screening (08/20/2019) HIV Screening Abstracted Historical Provider HEALTH MAINTENANCE Final Result * Cervical Cancer Screening: HPV (07/22/2014) Cervical Cancer Screening: HPV No interpreta tion,abstr acted Historical Provider HEALTH MAINTENANCE Final Result from Last 3 Months or Most Recently Relevant to Health Maintenance Insurance [facility] Care Teams Lumber Planer Relationship Specialty Start Date End Date Yesika Jordan MD [address] [place] [address] PCP - General 03/07/24
== END 2025-02-19 14:30 | disposition home or self-care (01) ==
LOC: HO.RHES 14:06
PROVIDERS: PCP Internal Medicine; Visit Provider Internal Medicine Rheumatology
DX: L40.50 Arthropathic psoriasis, unspecified (principal); Z79.899 Other long term (current) drug therapy
CPT/HCPCS: 99214

== ENCOUNTER 2025-03-19 10:14 | Outpatient (REF) | payer OTHER, SELFPAY ==
--- OUTSIDE RECORDS SUMMARY | 2025-03-19 11:00 | XMS_ITS | Clinical Summary ---
Author Organization [facility] Address [address] [place] [address] Care Team Providers Care Channel Rougher Name Role Phone Unavailable Primary Care Provider [...]
--- OUTSIDE RECORDS SUMMARY | 2025-03-19 11:00 | XMS_ITS | Clinical Summary ---
Author Organization [facility] [address] [facility] l[address] Address [address] [place] [address] Phone Care Team Providers Care Mechanism Assembler Name Role Phone Yesika Jordan MD Primary Care Provider +1- [phone] Allergies No known active allergies Medications albuterol [...] BY MOUTH EVERY DAY 90 tablet 1 02/26/20 25 Active methocarbamoL (ROBAXIN) 500 mg tablet TAKE 1-2 TABLETS (500-1000MG) BY MOUTH EVERY NIGHT AT BEDTIME NEEDED FOR MUSCLE PAIN 90 tablet 02/20/20 25 Active methocarbamoL (ROBAXIN) 500 mg tablet Take 1-2 tablets (500-1,000 mg total) by mouth at bedtime as needed for muscle spasms. 60 tablet 2 10/15/19 25 2024 Discontinued sertraline (ZOLOFT) 100 mg tablet TAKE ONE (1) TABLET BY MOUTH EVERY DAY 90 tablet 1 11/21/19 25 2024 Discontinued Active Problems Problem Noted Date Diagnosed Date Psoriatic arthritis ([facility] V24, [facility] V28) 0 06/07/2024 Overview (06/07/2024): Enbrel [...] Surgery Date Site/Laterality Comments COLONOSCOPY 2010 PROCEDURE: [place] COLONOSCOPY STOMA DX INCLUDING COLLJ SPEC SPX; COMMENT: juvenile polyps hx Medical History Medical History Date Comments 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 Mild intermittent asthma DX:Mild intermittent asthma Psoriasis 08/19/2011 DX:Psoriasis Psoriatic arthritis ([facility] V24, [facility] V28) DX:Psoriatic arthritis ([facility]) Cervical radiculitis 07/13/2016 DX:Cervical radiculitis; COMMENT: c5-6 disc herniation Family History Medical History Relation Name Comments Crohn's disease Brother Hypertension Brother Other: Psoriasis Maternal Grandfather Depression Mother Hypertension Mother Hypertension Sister Relation Name Status Comments Brother Alive crohns disease Father Alive diabetes Maternal Grandfather [place] Maternal Grandmother Alive heart p roblems Mother [...] 97 09/18/2024 8:39 AM EST Temperature 36.9 C (98.5 F) 09/18/2024 8:39 AM EST Respiratory Rate 12 09/18/2024 8:37 AM EST [...] 8:00 AM EST Office Visit Adult Medicine [facility] [address] [place] [address] Yesika Jordan MD [address] [place] [address] Health Maintenance Due Date Last Done Comments Hepatitis B Vaccines (1 of 3 - 19+ 3-dose series) 2001 Pneumococcal Vaccine: Pediatrics (0 to 5 Years) and At-Risk Patients (6 to 49 Years) (1 of 2 - PCV) 2001 Hepatitis C Screening 08/20/2022 Social Influencers of Health Screening 08/20/2022 COVID-19 Vaccine ( season) 2024 09/08/2021, 08/22/2021, 12/04/2020, Additional history exists Influenza Vaccine (#1) 2025 , 06/20/2024, 07/06/2023, Additional history exists Depression Screening 07/16/2025 07/16/2024 Cervical Cancer Screening: Pap Smear 10/17/2025 10/17/2022, 07/22/2014, 07/22/2014 Breast Cancer Screening 03/04/2026 03/04/2024 DTaP,Tdap,and Td Vaccines (3 - Td or Tdap) 09/18/2027 09/18/2017, 06/11/2007 Cholesterol Screening (Lipid Panel) 07/16/2029 07/16/2024 Colorectal Cancer Screening: Colonoscopy 01/16/2035 01/16/2025, 02/15/2011 HIV Screening Completed 08/20/2019 HIB Vaccines Aged Out No longer eligi [...] 4.4 LAB CHEMISTRY METHOD 07/16/2024 4:17 PM EST [facility] Blood Venous blood specimen / Unknown Venipuncture / Unknown 07/16/2024 10:25 AM EST 07/16/2024 10:25 AM EST Xin ALDRICH LAB BLOOD ORDERABLES Final Result [facility] [address] [place] [address], * HIV Screening (08/20/2019) HIV Screening Abstracted Historical Provider HEALTH MAINTENANCE Final Result * Cervical Cancer Screening: HPV (07/22/2014) Cervical Cancer Screening: HPV No interpreta tion,abstr acted Historical Provider HEALTH MAINTENANCE Final Result from Last 3 Months or Most Recently Relevant to Health Maintenance Insurance [facility] Care Teams Mechanism Assembler Relationship Specialty Start Date End Date Yesika Jordan MD [address] [place] [address] PCP - General 03/07/24
[2025-03-19 11:32] LABS: Syphilis Screen Nonreactive (Nonreactive)
[2025-03-19 11:37] LABS: HBsAGNum1 0.34 S/CO (0.00-0.99); HIV Num 1 0.06 S/CO (0.00-0.99); Hepatitis B Surface Antigen Negative (Negative); ~HepC Num1 0.17 S/CO (0.00-0.79); ~Hepatitis C Antibody Nonreactive (Nonreactive)
== END 2025-03-19 10:15 | disposition home or self-care (01) ==
LOC: HO.LAB 10:14
PROVIDERS: PCP Physician Assistant; Visit Provider Nurse Practitioner Women's Health
DX: Z11.3 Encounter for screening for infections with a predominantly sexual mode of transmission (principal); Z11.4 Encounter for screening for human immunodeficiency virus [HIV]
CPT/HCPCS: 36415; 86780; 86803; 87340; 87389

== ENCOUNTER 2025-03-20 14:31 | Outpatient (REF) | payer OTHER, SELFPAY ==
--- NOTE | ~2025-03-20 | MM_ITS ---
EXAMINATION: MM SCREENING DIGITAL BREAST TOMOSYNTHESIS, BILATERAL CLINICAL INFORMATION: Screening. Asymptomatic. COMPARISON: Mammography: Comparison is made with available priors TECHNIQUE: Digital breast mammography with tomosynthesis is performed in both the craniocaudal and mediolateral oblique views along with computer-aided detection (CAD). FINDINGS: There are scattered areas of fibroglandular density (ACR BI-RADS breast composition Category b). There are no significant masses, abnormal calcifications, or other abnormalities. MM/MM tomosynthesis screening BI IMPRESSION: No mammographic evidence of malignancy. ASSESSMENT: BI-RADS BI-RADS 1 - Negative RECOMMENDATION: Routine annual mammography screening. 1 year F/U This examination should not preclude the clinical evaluation of a suspicious palpable abnormality. This patient's information was entered into a reminder system with a target due date for their next mammogram. Electronically signed by: Alanis Corea DO 03/22/2025 02:36 PM EDT
--- OUTSIDE RECORDS SUMMARY | 2025-03-20 14:40 | XMS_ITS | Clinical Summary ---
Author Organization [facility] [address] [facility] l[address] Address [address] [place] [address] Phone Care Team Providers Care Supply Chain Planner Name Role Phone Yesika Jordan MD Primary Care Provider +1- [phone] Allergies No known active allergies Medications albuterol [...] Problem Noted Date Diagnosed Date Psoriatic arthritis ([facility] V24, [facility] V28) 0 06/07/2024 [...] Surgery Date Site/Laterality Comments COLONOSCOPY 2010 PROCEDURE: [place] COLONOSCOPY STOMA DX INCLUDING COLLJ SPEC SPX; COMMENT: juvenile polyps hx Medical History Medical History Date Comments 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 Mild intermittent asthma DX:Mild intermittent asthma Psoriasis 08/19/2011 DX:Psoriasis Psoriatic arthritis ([facility] V24, [facility] V28) DX:Psoriatic arthritis ([facility]) Cervical radiculitis 07/13/2016 DX:Cervical radiculitis; COMMENT: c5-6 disc herniation Family History Medical History Relation Name Comments Crohn's disease Brother Hypertension Brother Other: Psoriasis Maternal Grandfather Depression Mother Hypertension Mother Hypertension Sister Relation Name Status Comments Brother Alive crohns disease Father Alive diabetes Maternal Grandfather [place] Maternal Grandmother Alive heart p roblems Mother [...] 8:00 AM EST Office Visit Adult Medicine [facility] [address] [place] [address] Yesika Jordan MD [address] [place] [address] Health Maintenance Due Date Last Done Comments [...] LAB CHEMISTRY METHOD 07/16/2024 4:17 PM EST [facility] Blood Venous blood specimen / Unknown Venipuncture / Unknown 07/16/2024 10:25 AM EST 07/16/2024 10:25 AM EST Xin ALDRICH LAB BLOOD ORDERABLES Final Result [facility] [address] [place] [address], * HIV Screening (08/20/2019) HIV Screening Abstracted Historical Provider HEALTH MAINTENANCE Final Result * Cervical Cancer Screening: HPV (07/22/2014) Cervical Cancer Screening: HPV No interpreta tion,abstr acted Historical Provider HEALTH MAINTENANCE Final Result from Last 3 Months or Most Recently Relevant to Health Maintenance Insurance [facility] Care Teams Supply Chain Planner Relationship Specialty Start Date End Date Yesika Jordan MD [address] [place] [address] PCP - General 03/07/24
--- OUTSIDE RECORDS SUMMARY | 2025-03-20 14:40 | XMS_ITS | Clinical Summary ---
Author Organization [facility] Address [address] [place] [address] Care Team Providers Care Cnc Milling Machinist Name Role Phone Unavailable Primary Care Provider [...]
== END 2025-03-20 14:32 | disposition home or self-care (01) ==
LOC: HO.MAMMO 14:31
PROVIDERS: Visit Provider Internal Medicine
DX: Z12.31 Encounter for screening mammogram for malignant neoplasm of breast (principal)
CPT/HCPCS: 77063; 77067

== ENCOUNTER → 2025-03-20 14:45 | Outpatient (BNV) | payer OTHER, SELFPAY | PROVIDERS: Visit Provider Internal Medicine | DX: Z12.31 Encounter for screening mammogram for malignant neoplasm of breast (principal) | CPT/HCPCS: 77063; 77067 ==

== ENCOUNTER 2025-04-29 13:48 | Outpatient (AMB) | payer OTHER, SELFPAY ==
[2025-04-29 14:02] VITALS: BP 100/70; PULSE 83; O2SAT 99; BMI 29.2
--- NOTE | 2025-04-29 14:02 | A.OFFVIS_ITS ---
Vital Signs 04/29/25 14:02 Height 5 ft 2.8 in Weight 164 lb BMI 29.2 BP 100/70 Blood Pressure Location Lt brachial Position Sitting Pulse 83 Pulse Source Pulse Oximeter Pulse Oximetry (%) 99 Oxygen Delivery Method Room Air Intake Visit Reasons: follow up Intake Note: Patient presents today for follow up on psoriatic arthritis. Accompanied by: Self / Same As Patient Allergies No Known Allergies Allergy (Verified 04/29/25 14:04) HPI HPI follow up: Details: Pain in right thumb and knees in the last week. Cimzia is due today. No recent infections. Pain in joints increased after methotrexate dose was reduced to 15 mg once weekly. When she resumed her usual dose of methotrexate 20 mg once weekly pain improved. 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 Good respiratory effort Skin: No lesions MSK: R hand IP joint tender on palpation. No synovitis or dactylitis. Normal range of motion of upper extremities and lower extremities. Assessment & Plan Assessment & Plan (1) Psoriatic arthritis: Comment: Relapse after methotrexate dose was reduced due to concern of bone marrow suppression contributing to chronic mild leukopenia. After resuming her usual methotrexate dose joint pain improved. She has a mild flare affecting her right thumb and bilateral knees. She is due for Cimzia today. Rheumatology history: Psoriatic arthritis. She had developed plantar palmar pustulosis. Enbrel [id number] effective but discontinued due to . Failed Humira 2017 and methotrexate 2019. Cimzia and methotrexate 2020- Code(s): L40.50 - Arthropathic psoriasis, unspecified Category: Medical Plan: Labs for disease and drug monitoring ordered on high-risk medication Continue methotrexate 20 mg mg once weekly Continue folic acid 1 mg daily Continue Cimzia 200 mg subcutaneous injection every other week She will call office after 1 week if joint pain do not improve. I will then order Medrol Dosepak. 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
--- OUTSIDE RECORDS SUMMARY | 2025-04-29 15:06 | XMS_ITS | Clinical Summary ---
Author Organization [facility] Address [address] [place] [address] Care Team Providers Care Weight And Balance Control Agent Name Role Phone Unavailable Primary Care Provider [...] of 3 - 19+ 3-dose series) 2001 HPV Vaccines (1 - 3-dose SCD M series) 2009 COVID-19 Vaccine (2023-2 5 season) 2024 Pneumococcal Vaccine: Pediat gee (0-5 Years) and At-Risk Patients (6 to 49 Years) Aged Out No longer eligible b ased on patient's age to complete this topic
--- OUTSIDE RECORDS SUMMARY | 2025-04-29 15:06 | XMS_ITS | Clinical Summary ---
Author Organization [facility] [address] [facility] l[address] Address [address] [place] [address] Phone Care Team Providers Care Molder Punch Name Role Phone Yesika Jordan MD Primary Care Provider +1- [phone] Allergies No known active allergies Medications albuterol [...] BEDTIME NEEDED FOR MUSCLE PAIN 90 tablet 04/17/20 25 Active methocarbamoL (ROBAXIN) 500 mg tablet TAKE 1-2 TABLETS (500-1000MG) BY MOUTH EVERY NIGHT AT BEDTIME NEEDED FOR MUSCLE PAIN 90 tablet 02/20/20 25 2024 Discontinued Active Problems Problem Noted Date Diagnosed Date Psoriatic arthritis ([facility] V24, [facility] V28) 0 06/07/2024 Overview (06/07/2024): Enbrel [...] Surgery Date Site/Laterality Comments COLONOSCOPY 2010 PROCEDURE: [place] COLONOSCOPY STOMA DX INCLUDING COLLJ SPEC SPX; [...] crohns disease Father Alive diabetes Maternal Grandfather [place] Maternal Grandmother Alive heart p roblems Mother [...] 8:00 AM EST Office Visit Adult Medicine [address] [address] Yesika Jordan MD [address] [place], [place] [address] [place] [address] Health Maintenance Due Date Last Done Comments Hepatitis B Vaccines (1 of 3 - 19+ 3-dose series) 2001 Pneumococcal Vaccine: Pediatrics (0 to 5 Years) and At-Risk Patients (6 to 49 Years) (1 of 2 - PCV) 2001 Hepatitis C Screening 08/20/2022 Social Influencers of Health Screening 08/20/2022 COVID-19 Vaccine ( - season) 2024 09/08/2021, 08/22/2021, 12/04/2020, Additional history exists Depression Screening 09/11/2024 07/16/2024 Influenza Vaccine (#1) 2025 , 06/20/2024, 07/06/2023, Additional history exists Cervical Cancer Screening: Pap Smear 10/17/2025 10/17/2022, [...] LAB BLOOD ORDERABLES Final Result [place]OM[place] ([facility]) H[facility] LAB [address] [place] [address], [place] [phone] * HIV Screening (08/20/2019) HIV Screening Abstracted Historical Provider HEALTH MAINTENANCE Final Result * Cervical Cancer Screening: HPV (07/22/2014) Cervical Cancer Screening: HPV No interpreta tion,abstr acted Historical Provider HEALTH MAINTENANCE Final Result from Last 3 Months or Most Recently Relevant to Health Maintenance Insurance [employer] [facility] Care Teams Molder Punch Relationship Specialty Start Date End Date Yesika Jordan MD [address] [place] [address] PCP - General 03/07/24
== END 2025-04-29 14:36 | disposition home or self-care (01) ==
LOC: HO.RHES 13:48
PROVIDERS: PCP Internal Medicine; Visit Provider Internal Medicine Rheumatology
DX: L40.50 Arthropathic psoriasis, unspecified (principal); Z79.899 Other long term (current) drug therapy
CPT/HCPCS: 99214

== ENCOUNTER 2025-04-30 06:43 | Outpatient (REF) | payer OTHER, SELFPAY ==
--- OUTSIDE RECORDS SUMMARY | 2025-04-30 06:45 | XMS_ITS | Clinical Summary ---
Author Organization [facility] [address] [facility] l[address] Address [address] [place] [address] Phone Care Team Providers Care Furnishings Conservator Name Role Phone Yesika Jordan MD Primary Care Provider +1- [phone] Allergies No known active allergies Medications albuterol [...] Date Psoriatic arthritis ([facility] V24, [facility] V28) 0 06/07/2024 [...] 8:00 AM EST Office Visit Adult Medicine [address] [address] Yesika Jordan MD [address] [place], [place] [address] [place] [address] Health Maintenance Due Date Last Done Comments [...] mg/dL LAB CHEMISTRY METHOD 07/16/2024 4:17 PM [facility] Triglycerides 225(H) 0 - 150 mg/dL LAB CHEMISTRY METHOD 07/16/2024 4:17 PM [facility] HDL 50 >=40 mg/dL LAB CHEMISTRY METHOD 07/16/2024 4:17 PM [facility] LDL Calculated 74 0 - 100 mg/dL LAB CHEMISTRY METHOD 07/16/2024 4:17 PM [facility] VLDL Cholesterol Yovanny 45 mg/dL LAB CHEMISTRY METHOD 07/16/2024 4:17 PM [facility] Non HDL Chol. (LDL+VLDL) 119 <145 mg/dL LAB CHEMISTRY METHOD 07/16/2024 4:17 PM [facility] Chol/HDL Ratio 3.4 0.0 - 4.4 LAB CHEMISTRY METHOD 07/16/2024 4:17 PM [facility] Blood Venous blood specimen / Unknown Venipuncture / Unknown 07/16/2024 10:25 AM EST 07/16/2024 10:25 AM EST Xin ALDRICH LAB BLOOD ORDERABLES Final Result [place]UN [place]OMON [place] ([facility]) H[facility] LAB [address] [place] [address], [place] [phone] * HIV Screening (08/20/2019) HIV Screening Abstracted Historical Provider HEALTH MAINTENANCE Final Result * Cervical Cancer Screening: HPV (07/22/2014) Cervical Cancer Screening: HPV No interpreta tion,abstr acted Historical Provider HEALTH MAINTENANCE Final Result from Last 3 Months or Most Recently Relevant to Health Maintenance Insurance [employer] [facility] Care Teams Furnishings Conservator Relationship Specialty Start Date End Date Yesika Jordan MD [address] [place] [address] PCP - General 03/07/24
--- OUTSIDE RECORDS SUMMARY | 2025-04-30 06:45 | XMS_ITS | Clinical Summary ---
Author Organization [facility] Address [address] [place] [address] Care Team Providers Care Manager Of Supply Chain Name Role Phone Unavailable Primary Care Provider [...]
[2025-04-30 07:45] LABS: Baso%MD 0.5 %; Eos%MD 0.2 %; Hematocrit 37.4 % (37.0-47.0); Hemoglobin 12.8 g/dl (12.0-16.0); IG%MD 0.2 %; Lymph%MD 44.4 %; Mean Corpuscular HGB Conc 34.2 g/dl (31.0-35.0); Mean Corpuscular Hemoglobin 33.0 pg (27.0-33.0); Mean Corpuscular Volume 96.4 fL (80.0-98.0); Mono%MD 11.1 %; NRBC Abs Auto 0.000 X10*3/uL (0.0-0.012); NRBC Pct Auto 0.0 /100WBC (0.0-0.2); Neut%MD 43.6 %; Platelet Count 201 X10*3/uL (160-400); Red Blood Count 3.88 X10*6/uL (4.20-5.50); White Blood Count 4.3 X10*3/uL (4.8-10.8)
[2025-04-30 08:19] LABS: Alanine Aminotransferase 19 U/L (0-31); Aspartate Amino Transferase 23 U/L (5-31); Estimated Glomerular Filt Rate > 60
[2025-04-30 08:46] LABS: Atypical Lymphs Percent Manual 1 % (0-6); Band Neutrophils Percent 0 % (3-5); Basophils Percent Manual 1 % (0-2); Lymphocytes Absolute Manual 2.2 X10*3/uL (1.2-4.9); Lymphocytes Percent Manual 50 % (20-40); Monocytes Absolute Manual 0.3 X10*3/uL (0.1-1.2); Monocytes Percent Manual 8 % (2-11); Neutrophils Absolute Manual 1.7 X10*3/uL (2.0-8.3); Neutrophils Percent Manual 40 % (45-73)
[2025-04-30 08:48] LABS: RBC Morphology NORMAL
== END 2025-04-30 06:44 | disposition home or self-care (01) ==
LOC: HO.LAB 06:43
PROVIDERS: PCP Physician Assistant; Visit Provider Internal Medicine Rheumatology
DX: L40.50 Arthropathic psoriasis, unspecified (principal); Z79.899 Other long term (current) drug therapy
CPT/HCPCS: 36415; 82565; 84450; 84460; 85007; 85027; 85652; 86140

== ENCOUNTER 2025-07-22 13:07 | Outpatient (REF) | payer OTHER, SELFPAY ==
[2025-07-22 13:18] LABS: MANUAL DIFF FLAG NO
[2025-07-22 14:13] LABS: Hematocrit 36.3 % (37.0-47.0); Hemoglobin 12.3 g/dl (12.0-16.0); Imm Gran Abs Auto 0.01 X10*3/uL (0.00-0.03); Imm Gran Pct Auto 0.2 % (0.0-0.4); Lymphocytes Absolute Auto 1.9 X10*3/uL (1.2-4.9); Mean Corpuscular HGB Conc 33.9 g/dl (31.0-35.0); Mean Corpuscular Hemoglobin 32.5 pg (27.0-33.0); Mean Corpuscular Volume 96.0 fL (80.0-98.0); NRBC Abs Auto 0.000 X10*3/uL (0.0-0.012); NRBC Pct Auto 0.0 /100WBC (0.0-0.2); Platelet Count 211 X10*3/uL (160-400); Red Blood Count 3.78 X10*6/uL (4.20-5.50); White Blood Count 4.9 X10*3/uL (4.8-10.8)
--- OUTSIDE RECORDS SUMMARY | 2025-07-22 14:53 | XMS_ITS | Clinical Summary ---
Author Organization [facility] [address] [facility] lding Address [address] [place] [address] Phone Care Team Providers Care Steeping Press Operator Name Role Phone Yesika Jordan MD Primary [...] EVERY DAY 90 tablet 1 5 Active methocarbamoL (ROBAXIN) 500 mg tablet TAKE 1-2 TABLETS (500-1000MG) BY MOUTH EVERY NIGHT AT BEDTIME NEEDED FOR MUSCLE PAIN 90 tablet 5 Active Active Problems Problem Noted Date Diagnosed Date Psoriatic arthritis ([facility] V24, [facility] V28) 0 06/07/2024 Overview (06/07/2024): Enbrel through dermatology 2014-, stopped due to . Humira started 2016, ineffective. Methotrexate started 2018, ineffective and stopped. , restart Enbrel through rheumatology Hepatitis B core antibody positive 06/17/2021 Overview (06/07/2024): 06/2021- followup recheck ordered. 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 Mild intermittent asthma DX:Mild intermittent asthma Psoriasis 08/19/2011 DX:Psoriasis Psoriatic arthritis (CMS/HCC V24, CMS/HCC V28) DX:Psoriatic arthritis ([facility]) Cervical radiculitis 07/13/2016 DX:Cervical radiculitis; COMMENT: c5-6 disc herniation Family History Medical History Relation Name Comments Crohn's disease Brother Hypertension Brother Other: Psoriasis Maternal Grandfather Depression Mother Hypertension Mother Hypertension Sister Relation Name Status Comments Brother Alive crohns disease Father Alive diabetes Maternal Grandfather [place] Maternal Grandmother Alive heart p roblems Mother Alive high chol, HTN, borderline diabetes > resolved with weight loss Paternal Grandfather unknown Paternal Grandmother Alive unknown Sister Alive healthy Son Alive healthy Social History Tobacco Use Types Packs/Day Years Used Date Smoking Tobacco: Former Cigarettes 0.3 Q uit: 09/11/2017 Smokeless Tobacco: Never Tobacco [...] 09/18/2024 8:37 AM EST Plan of Treatment Health Maintenance Due Date Last Done Comments Hepatitis B Vaccines (1 of 3 - 19+ 3-dose series) 2001 Pneumococcal Vaccine: Pediatrics (0 to 5 Years) and At-Risk Patients (6 to 49 Years) (1 of 2 - PCV) 2001 HPV Vaccines (1 - 3-dose SCDM series) 2009 Hepatitis C Screening 08/20/2022 Social Influencers of Health Screening 08/20/2022 Depression Screening 09/11/2024 07/16/2024 COVID-19 Vaccine ( season) 2025 09/08/2021, 08/22/2021, 12/04/2020, Additional history exists Influenza Vaccine (#1) 2025 , 06/20/2024, 07/06/2023, Additional history exists Cervical Cancer Screening: Pap Smear 10/17/2025 10/17/2022, 07/22/2014, 07/22/2014 Breast Cancer Screening 03/04/2026 03/04/2024 DTaP,Tdap,and Td Vaccines (3 - Td or Tdap) 09/18/2027 09/18/2017, 06/11/2007 Cholesterol Screening (Lipid Panel) 07/16/2029 07/16/2024 Colorectal Cancer Screening: Colonoscopy 01/16/2035 01/16/2025, 02/15/2011 RSV Immunization Adult Patients (1 - 1-dose 75+ series) 2057 HIV Screening Completed 08/20/2019 HIB Vaccines Aged [...] PM EDT) Anatomical Region Laterality Modality Endoscopy Historical Provider GI~PROCEDURE ORDERABLES F inal Result * (ABNORMAL) Lipid panel with reflex to direct LDL (07/16/2024 10:25 AM EST) Cholesterol 169 0 - 200 mg/dL LAB CHEMISTRY METHOD 07/16/2024 4:17 PM EST [facility] Triglycerides 225(H) 0 - 150 mg/dL LAB CHEMISTRY METHOD 07/16/2024 4:17 PM EST [facility] HDL 50 >=40 mg/dL LAB CHEMISTRY METHOD 07/16/2024 4:[address] [facility] LDL Calculated 74 0 - 100 mg/dL LAB CHEMISTRY METHOD 07/16/2024 4:[address] [facility] VLDL Cholesterol Yovanny 45 mg/dL LAB CHEMISTRY METHOD 07/16/2024 4:17 PM EST [facility] Non HDL Chol. (LDL+VLDL) 119 <145 mg/dL LAB CHEMISTRY METHOD 07/16/2024 4:[address] [facility] Chol/HDL Ratio 3.4 0.0 - 4.4 LAB CHEMISTRY METHOD 07/16/2024 4:[address] [facility] Blood Venous blood specimen / Unknown Venipuncture / Unknown 07/16/2024 10:25 AM EST 07/16/2024 10:25 AM EST Xin ALDRICH LAB BLOOD ORDERABLES Final Result [facility] [address] [place] [address], [place] [phone] * Hm HIV Screening (08/20/2019) HIV Screening Abstracted us Historical Provider HEALTH MAINTENANCE Final Result * Hm Cervical Cancer Screening: HPV (07/22/2014) Cervical Cancer Screening: HPV No interpreta tion,abstr acted Historical Provider HEALTH MAINTENANCE Final Result from Last 3 Months or Most Recently Relevant to Health Maintenance Insurance [employer] [facility] Care Teams Steeping Press Operator Relationship Specialty Start Date End Date Yesika Jordan MD [address] [place] [phone] PCP - General 03/07/24
--- OUTSIDE RECORDS SUMMARY | 2025-07-22 14:53 | XMS_ITS | Clinical Summary ---
Author Organization [facility] Address [address] [place] [address] Care Team Providers Care Residential Sales Representative Name Role Phone Unavailable Primary Care Provider [...] series) 2001 COVID-19 Vaccine (2023-2 5 season) 2025 HPV Vaccines (No Doses Required) Completed Pneumococcal Vaccine: Pediat gee (0-5 Years) and At-Risk Patients (6 to 49 Years) Aged Out No longer eligible b ased on patient's age to complete this topic
[2025-07-22 14:57] LABS: Alanine Aminotransferase 19 U/L (0-31); Aspartate Amino Transferase 23 U/L (5-31); Estimated Glomerular Filt Rate 36
== END 2025-07-22 13:08 | disposition home or self-care (01) ==
LOC: HO.LAB 13:07
PROVIDERS: PCP Physician Assistant; Visit Provider Internal Medicine Rheumatology
DX: Z79.899 Other long term (current) drug therapy (principal)
CPT/HCPCS: 36415; 82565; 84450; 84460; 85025; 85652; 86140

== ENCOUNTER 2025-07-23 14:17 | Outpatient (AMB) | payer OTHER, SELFPAY ==
--- NOTE | 2025-07-23 14:25 | MHC.PC.OV ---
Vital Signs 07/23/25 14:29 Height 5 ft 2.8 in Weight 164 lb BMI 29.2 BP 118/76 Blood Pressure Location Rt brachial Position Sitting Respiration 12 Pulse 82 Pulse Source Pulse Oximeter Temp 97.9 F Temp Source Oral Pulse Oximetry (%) 97 Oxygen Delivery Method Room Air Intake Visit Reasons: pe Intake Note: Physical Metal Stud Framer Required: No Allergies No Known Allergies Allergy (Verified 07/23/25 14:30) Tobacco use date assessed: 07/23/25 Dental Screening Dental Screen Date: 01/22/25 HPI pe HPI Details Patient is a 45-year-old female with a significant past medical history of psoriatic arthritis, anxiety and depression, presenting today to for a physical exam. CV: Blood pressure today in the office is 118/74. Psych: On sertraline and lorazepam as needed. She states it is mostly anxiety. Denies any SI/HI. Rheum: Follows with Rheumatology and [facility]. She is on methotrexate and Cimzia. She has been on methotrexate about 2-3 years and states she has never had an issue with her kidneys. She does use NSAIDs but very rarely. Took ibuprofen 800 mg a few days ago. She takes it 3-4 x a week. She had recent labs for rheumatology and was noted to have an VENTURA. She says that she does not have any symptoms in his overall feeling well. She denies any urinary symptoms, flank pain, weakness, nausea, vomiting, abdominal pain, fevers or chills. She did have a cold about a week ago and wonders if she was a little dehydrated. She denies overuse of NSAIDs. She has not been on any new antibiotics or medications. She is scheduled for methotrexate tomorrow. 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 Current occupational exposures/hazards: Yes Cognitive needs: No Hearing needs: No Vision needs: Yes (glasses) Questionnaire Thrive Questionnaire Date Thrive assessed: 01/15/25 I am a: Patient What is your living situation today?: I have a steady place to live Within the past 12 months, did the food you bought not last and you didn't have the money to get more?: Never true Within the past 12 months, did you worry whether your food would run out before you got money to buy more?: Never true Do you have trouble paying for medicines?: No Do you have trouble getting transportation to medical appointments?: No Do you have trouble paying your heating and electricity bill?: No Do you have trouble taking care of your child, family member or friend?: No Do you have trouble with day-to-day activities such as bathing, preparing meals, shopping, managing finances, etc.?: No Are you currently unemployed and looking for a job?: No Are you interested in more education?: No Please select the resources that you would like help with: None Currently or been in a relationship where the following occur: No concerns reported THRIVE Score: 0 AUDIT C Alcohol Use Questionnaire (AUDIT-C) 1. How often do you have a drink containing alcohol?: 2-3 times a week 2. How many drinks containing alcohol do you have on a typical day when you are drinking?: 1 or 2 3. How often do you have six or more drinks on one occasion?: Never Total Score: 3 STEPHANIE-7 AMB Questionnaire STEPHANIE-7 Date STEPHANIE - 7 assessed: 01/22/25 Source: Developed by Drs. Kwan Mccarty, Liliana Duran, Saeid Harris and colleagues, with an educational jie from [employer]. Physical exam (Primary Care) Vital Signs: Last Vital Signs Temp 97.9 F 07/23/25 14:29 Pulse 82 07/23/25 14:29 Resp 12 07/23/25 14:29 BP 118/76 07/23/25 14:29 Pulse Ox 97 07/23/25 14:29 Oxygen Delivery Method Room Air 07/23/25 14:29 BMI result Body Mass Index 29.2 Tobacco/Smoking Status: Tobacco use Status Tobacco use date assessed 07/23/25 07/23/25 14:33 Patient Tobacco Use Status Former Tobacco user 07/23/25 14:26 e-Cigarette/Vaping Use Never Used 07/23/25 14:26 Thrive Assessment: Date of Thrive Assessment Date Thrive assessed 01/15/25 07/23/25 14:26 Currently or been in a relationship where the following occur: No concerns reported Const Orientation/consciousness: patient oriented x3 HENMT Ears: hearing grossly normal bilaterally and TM's normal bilaterally General nose exam: No nasal polyps present Face and sinus: Yes sinuses nontender Mouth: Normal oral and palatal mucosa present Eyes Pupils: Equal, round and reactive pupils present EOM: EOMs intact bilaterally Neck Neck: Yes full ROM and Yes no lymphadenopathy Thyroid: Thyroid normal Chest Chest palpation & inspection: normal inspection of the chest Resp Auscultation: clear to auscultation bilaterally Cardio Rate: regular rate Rhythm: regular rhythm Heart sounds: S1 normal heart sound present and S2 normal heart sound present Peripheral pulses: Peripheral pulses 2+ throughout GI Other: Soft, nontender Auscultation: normal bowel sounds Rectal Exam - Female: deferred General: Yes no CVA tenderness Back/Spine/Pelvis Other: Nontender Back: no CVA tenderness Skin General skin exam: no rashes or lesions noted Neuro General: patient oriented x3, gait normal, CN's II-XI intact bilaterally and deep tendon reflexes 2+ bilaterally Cranial nerves: Yes Equal, round and reactive pupils present Motor exam (neuro): 5/5 motor strength present throughout Sensory Exam: double simultaneous stimulation for sensation normal Coordination: [id number] test normal and Romberg test negative Extrem General: Yes normal to inspection and Yes full ROM Psych Affect: normal affect Attitude: cooperative Thought process: Normal thought process present Thought content: Normal thought content present Insight: Good insight present (Psych) Judgement: Good judgement present (Psych) Results Reviewed Results Reviewed: Laboratory Tests 01/30/25 04/30/25 07/22/25 15:17 06:59 13:17 WBC 4.9 RBC 3.78 L Hgb 12.3 Hct 36.3 L Plt Count 211 Creatinine 0.88 1.58 H Estimated GFR > 60 36 Estimat Average Glucose 100 Hemoglobin A1c % 5.1 Coding Level of Care Code Est Pt Prev Care 40-64y(85124) Diagnoses Routine general medical examination at a health care facility Z00.00 Psoriatic arthritis L40.50 Mild recurrent major depression F33.0 VENTURA (acute kidney injury) N17.9 Assessment & Plan Assessment & Plan (1) Routine general medical examination at a health care facility: Code(s): Z00.00 - Encounter for general adult medical examination without abnormal findings Plan: reviewed labs ordered (2) Psoriatic arthritis: Comment: Relapse after methotrexate dose was reduced due to concern of bone marrow suppression contributing to chronic mild leukopenia. After resuming her usual methotrexate dose joint pain improved. She has a mild flare affecting her right thumb and bilateral knees. She is due for Cimzia today. Rheumatology history: Psoriatic arthritis. She had developed plantar palmar pustulosis. Enbrel 2281-1054 effective but discontinued due to . Failed Humira 2016 and methotrexate 2018. Cimzia and methotrexate 2019- Code(s): L40.50 - Arthropathic psoriasis, unspecified Category: Medical Plan: Following with Rheumatology (3) Mild recurrent major depression: Code(s): F33.0 - Major depressive disorder, recurrent, mild Category: Medical Plan: Doing well with sertraline (4) VENTURA (acute kidney injury): Code(s): N17.9 - Acute kidney failure, unspecified Category: Medical Plan: We will recheck labs today and urine. We will follow up with her pending test results. Advised to avoid all NSAIDs. I did discuss with her that she should contact her cemetery counselor as well regarding methotrexate dosing. Orders: Orders Microalbumin, Random (w Creat) 07/23/25 D64.9 - Anemia, unspecified, F33.0 - Major depressive disorder, recurrent, mild, F41.0 - Panic disorder [episodic paroxysmal anxiety], F41.1 - Generalized anxiety disorder, L40.50 - Arthropathic psoriasis, unspecified, N17.9 - Acute kidney failure, unspecified, Z79.899 - Other retirement (current) drug therapy TSH reflex Free T4 07/23/25 D64.9 - Anemia, unspecified, F33.0 - Major depressive disorder, recurrent, mild, F41.0 - Panic disorder [episodic paroxysmal anxiety], F41.1 - Generalized anxiety disorder, L40.50 - Arthropathic psoriasis, unspecified, N17.9 - Acute kidney failure, unspecified, Z79.899 - Other retirement (current) drug therapy Lipid Panel 07/23/25 D64.9 - Anemia, unspecified, F33.0 - Major depressive disorder, recurrent, mild, F41.0 - Panic disorder [episodic paroxysmal anxiety], F41.1 - Generalized anxiety disorder, L40.50 - Arthropathic psoriasis, unspecified, N17.9 - Acute kidney failure, unspecified, Z79.899 - Other retirement (current) drug therapy Comprehensive Met. Panel 07/23/25 D64.9 - Anemia, unspecified, F33.0 - Major depressive disorder, recurrent, mild, F41.0 - Panic disorder [episodic paroxysmal anxiety], F41.1 - Generalized anxiety disorder, L40.50 - Arthropathic psoriasis, unspecified, N17.9 - Acute kidney failure, unspecified, Z79.899 - Other retirement (current) drug therapy Complete Blood Count Auto Diff 07/23/25 D64.9 - Anemia, unspecified, F33.0 - Major depressive disorder, recurrent, mild, F41.0 - Panic disorder [episodic paroxysmal anxiety], F41.1 - Generalized anxiety disorder, L40.50 - Arthropathic psoriasis, unspecified, N17.9 - Acute kidney failure, unspecified, Z79.899 - Other retirement (current) drug therapy UA CC w/rflx Micro + Cult 07/23/25 D64.9 - Anemia, unspecified, F33.0 - Major depressive disorder, recurrent, mild, F41.0 - Panic disorder [episodic paroxysmal anxiety], F41.1 - Generalized anxiety disorder, L40.50 - Arthropathic psoriasis, unspecified, N17.9 - Acute kidney failure, unspecified, R30.0 - Dysuria, Z79.899 - Other retirement (current) drug therapy
[2025-07-23 14:29] VITALS: BP 118/76; PULSE 82; RESP 12; TEMP 36.6; O2SAT 97; BMI 29.2
--- OUTSIDE RECORDS SUMMARY | 2025-07-23 17:41 | XMS_ITS | Clinical Summary ---
Author Organization [facility] Address [address] [place] [address] Care Team Providers Care Feed House Supervisor Name Role Phone Unavailable Primary Care Provider [...]
--- OUTSIDE RECORDS SUMMARY | 2025-07-23 17:41 | XMS_ITS | Clinical Summary ---
Author Organization [facility] [address] [facility] l[address] Address [address] [place] [address] Phone Care Team Providers Care Fret Saw Operator Name Role Phone Yesika Jordan MD [...] Problem Noted Date Diagnosed Date Psoriatic arthritis ([facility] V24, [facility] V28) 0 06/07/2024 Overview (06/07/2024): [...] Surgery Date Site/Laterality Comments COLONOSCOPY 2010 PROCEDURE: [place] COLONOSCOPY STOMA DX INCLUDING COLLJ SPEC SPX; COMMENT: juvenile polyps hx Medical History Medical History Date Comments 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 Mild intermittent asthma DX:Mild intermittent asthma Psoriasis 08/19/2011 DX:Psoriasis Psoriatic arthritis (CMS/HCC V24, CMS/HCC V28) DX:Psoriatic arthritis ([facility]) Cervical radiculitis 07/13/2016 DX:Cervical radiculitis; [...] LAB CHEMISTRY METHOD 07/16/2024 4:17 PM EST [facility] Triglycerides 225(H) 0 - 150 mg/dL LAB CHEMISTRY METHOD 07/16/2024 4:17 PM EST [facility] HDL 50 >=40 mg/dL LAB CHEMISTRY METHOD 07/16/2024 4:17 PM [facility] LDL Calculated 74 0 - 100 mg/dL LAB CHEMISTRY METHOD 07/16/2024 4:17 PM [facility] VLDL Cholesterol Yovanny 45 mg/dL LAB CHEMISTRY METHOD 07/16/2024 4:17 PM EST [facility] Non HDL Chol. (LDL+VLDL) 119 <145 mg/dL LAB CHEMISTRY METHOD 07/16/2024 4:17 PM [facility] Chol/HDL Ratio 3.4 0.0 - 4.4 LAB CHEMISTRY METHOD 07/16/2024 4:17 PM [facility] Blood Venous blood specimen / Unknown Venipuncture / Unknown 07/16/2024 10:25 AM EST 07/16/2024 10:25 AM EST Xin ALDRICH LAB BLOOD ORDERABLES Final Result [facility] [address] [place] [address], [place] [phone] * Hm HIV Screening (08/20/2019) HIV Screening Abstracted us Historical Provider HEALTH MAINTENANCE Final Result * Hm Cervical Cancer Screening: HPV (07/22/2014) Cervical Cancer Screening: HPV No interpreta tion,abstr acted Historical Provider HEALTH MAINTENANCE Final Result from Last 3 Months or Most Recently Relevant to Health Maintenance Insurance [employer] [facility] [place] [address] Care Teams Fret Saw Operator Relationship Specialty Start Date End Date Yesika Jordan MD [address] [place] [phone] PCP - General 03/07/24
== END 2025-07-23 15:04 | disposition home or self-care (01) ==
LOC: HO.HMCFM 14:18
PROVIDERS: PCP Physician Assistant; Visit Provider Physician Assistant
DX: Z00.00 Encounter for general adult medical examination without abnormal findings (principal); L40.50 Arthropathic psoriasis, unspecified; F33.0 Major depressive disorder, recurrent, mild; N17.9 Acute kidney failure, unspecified

== ENCOUNTER 2025-07-23 14:17 | Outpatient (REF) | payer OTHER, SELFPAY ==
[2025-07-23 18:05] LABS: Appearance Urine Clear; Glucose Urine UA Negative (Negative); PH 7.0 (5.0-9.0); Specific Gravity - Urine <= 1.005 (1.005-1.025)
[2025-07-23 18:08] LABS: MANUAL DIFF FLAG NO
[2025-07-23 18:31] LABS: Alanine Aminotransferase 18 U/L (0-31); Albumin Level 4.3 g/dL (3.5-5.0); Alkaline Phosphatase 70 U/L (39-117); Anion Gap 13 (12-20); Aspartate Amino Transferase 24 U/L (5-31); Blood Urea Nitrogen 24 mg/dL (9-16); Calcium 8.8 mg/dL (8.4-10.2); Carbon Dioxide 26 mmol/L (22-29); Chloride 104 mmol/L (96-108); Cholesterol 189 mg/dL (<200); Estimated Glomerular Filt Rate > 60; HDL Cholesterol 49 mg/dL (>40); Potassium 4.1 mmol/L (3.3-5.1); Sodium 139 mmol/L (135-145); Total Protein 7.1 g/dL (6.5-8.0); Triglycerides 151 mg/dL (<150)
[2025-07-23 19:07] LABS: Hematocrit 35.3 % (37.0-47.0); Hemoglobin 11.8 g/dl (12.0-16.0); Imm Gran Abs Auto 0.01 X10*3/uL (0.00-0.03); Imm Gran Pct Auto 0.2 % (0.0-0.4); Lymphocytes Absolute Auto 2.0 X10*3/uL (1.2-4.9); Mean Corpuscular HGB Conc 33.4 g/dl (31.0-35.0); Mean Corpuscular Hemoglobin 32.2 pg (27.0-33.0); Mean Corpuscular Volume 96.4 fL (80.0-98.0); NRBC Abs Auto 0.000 X10*3/uL (0.0-0.012); NRBC Pct Auto 0.0 /100WBC (0.0-0.2); Platelet Count 200 X10*3/uL (160-400); Red Blood Count 3.66 X10*6/uL (4.20-5.50); White Blood Count 4.9 X10*3/uL (4.8-10.8)
== END 2025-07-23 14:18 | disposition home or self-care (01) ==
LOC: HO.WFDLDS 14:17
PROVIDERS: PCP Physician Assistant; Visit Provider Physician Assistant
DX: Z00.00 Encounter for general adult medical examination without abnormal findings (principal); R30.0 Dysuria; F33.0 Major depressive disorder, recurrent, mild; F41.1 Generalized anxiety disorder; F41.0 Panic disorder [episodic paroxysmal anxiety]; N17.9 Acute kidney failure, unspecified; D64.9 Anemia, unspecified; L40.50 Arthropathic psoriasis, unspecified; Z79.899 Other long term (current) drug therapy
CPT/HCPCS: 36415; 80053; 80061; 81003; 82570; 84443; 85025

== ENCOUNTER 2025-08-01 15:40 | Outpatient (REF) | payer OTHER, SELFPAY ==
--- OUTSIDE RECORDS SUMMARY | 2025-08-01 15:44 | XMS_ITS | Clinical Summary ---
Author Organization [facility] [address] [facility] lding Address [address] [place] [address] Phone Care Team Providers Care Laboratory Cureman Name Role Phone Yesika Jordan MD Primary [...] Problem Noted Date Diagnosed Date Psoriatic arthritis ([facility] V24, [facility] V28) 0 06/07/2024 Overview (06/07/2024): [...] Surgery Date Site/Laterality Comments COLONOSCOPY 2010 PROCEDURE: [place] COLONOSCOPY STOMA DX INCLUDING COLLJ SPEC SPX; COMMENT: juvenile polyps hx Medical History Medical History Date Comments 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 Mild intermittent asthma DX:Mild intermittent asthma Psoriasis 08/19/2011 DX:Psoriasis Psoriatic arthritis (CMS/HCC V24, CMS/HCC V28) DX:Psoriatic arthritis ([facility]) Cervical radiculitis 07/13/2016 DX:Cervical radiculitis; COMMENT: c5-6 disc herniation Family History Medical History Relation Name Comments Crohn's disease Brother Hypertension Brother Other: Psoriasis Maternal Grandfather Depression Mother Hypertension Mother Hypertension Sister Relation Name Status Comments Brother Alive crohns disease Father Alive diabetes Maternal Grandfather [place] Maternal Grandmother Alive heart p roblems Mother [...] LAB CHEMISTRY METHOD 07/16/2024 4:17 PM EST [facility] Triglycerides 225(H) 0 - 150 mg/dL LAB CHEMISTRY METHOD 07/16/2024 4:17 PM EST [facility] HDL 50 >=40 mg/dL LAB CHEMISTRY METHOD 07/16/2024 4:17 PM [facility] LDL Calculated 74 0 - 100 mg/dL LAB CHEMISTRY METHOD 07/16/2024 4:17 PM [facility] VLDL Cholesterol Yovanny 45 mg/dL LAB CHEMISTRY METHOD 07/16/2024 4:17 PM EST [facility] Non HDL Chol. (LDL+VLDL) 119 <145 mg/dL LAB CHEMISTRY METHOD 07/16/2024 4:17 PM [facility] Chol/HDL Ratio 3.4 0.0 - 4.4 LAB CHEMISTRY METHOD 07/16/2024 4:17 PM [facility] Blood Venous blood specimen / Unknown Venipuncture / Unknown 07/16/2024 10:25 AM EST 07/16/2024 10:25 AM EST Xin ALDRICH LAB BLOOD ORDERABLES Final Result [facility] [address] [place] [address], [place] [phone] * Hm HIV Screening (08/20/2019) HIV Screening Abstracted us Historical Provider HEALTH MAINTENANCE Final Result * Hm Cervical Cancer Screening: HPV (07/22/2014) Cervical Cancer Screening: HPV No interpreta tion,abstr acted Historical Provider HEALTH MAINTENANCE Final Result from Last 3 Months or Most Recently Relevant to Health Maintenance Insurance [employer] [facility] Care Teams Laboratory Cureman Relationship Specialty Start Date End Date Yesika Jordan MD [address] [place] [phone] PCP - General 03/07/24
--- OUTSIDE RECORDS SUMMARY | 2025-08-01 15:44 | XMS_ITS | Clinical Summary ---
Author Organization [facility] Address [address] [place] [address] Care Team Providers Care National Secretary Name Role Phone Unavailable Primary Care Provider [...]
[2025-08-01 16:35] LABS: Anion Gap 10 (12-20); Blood Urea Nitrogen 22 mg/dL (9-16); Calcium 8.5 mg/dL (8.4-10.2); Carbon Dioxide 25 mmol/L (22-29); Chloride 107 mmol/L (96-108); Estimated Glomerular Filt Rate > 60; Potassium 4.3 mmol/L (3.3-5.1); Sodium 138 mmol/L (135-145)
== END 2025-08-01 15:41 | disposition home or self-care (01) ==
LOC: HO.LAB 15:40
PROVIDERS: PCP Physician Assistant; Visit Provider Physician Assistant
DX: N17.9 Acute kidney failure, unspecified (principal)
CPT/HCPCS: 36415; 80048

== ENCOUNTER 2025-08-05 13:34 | Outpatient (AMB) | payer OTHER, SELFPAY ==
--- NOTE | 2025-08-05 13:35 | A.OFFVIS_ITS ---
Vital Signs 08/05/25 13:36 Height 5 ft 2.8 in Weight 166 lb 0.129 oz BMI 29.6 BP 110/80 Blood Pressure Location Lt brachial Position Sitting Pulse 89 Pulse Source Pulse Oximeter Pulse Oximetry (%) 100 Oxygen Delivery Method Room Air Intake Visit Reasons: 4months Intake Note: Patient presents today for follow up on psoriatic arthritis. Accompanied by: Self / Same As Patient Allergies No Known Allergies Allergy (Verified 08/05/25 13:35) HPI HPI 4months: Details: She is doing well. She had a mild URI 3 weeks ago. 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 She had developed plantar palmar pustulosis. Enbrel [id number] effective but discontinued due to . Failed Humira 2016 and methotrexate 2018. Cimzia and methotrexate 2019- Code(s): L40.50 - Arthropathic psoriasis, unspecified Category: Medical Plan: Labs for disease and drug monitoring on high-risk medication up-to-date Continue methotrexate 20 mg mg once weekly Continue folic acid 1 mg daily Continue Cimzia 200 mg subcutaneous injection every other week Return to clinic in three months (2) [facility] (current) drug therapy: Code(s): Z79.899 - [facility] Category: Medical Plan: See above Orders: Orders Complete Blood Count Auto Diff 3 Months Z79.89 - [facility] (current) drug therapy Aspartate Amino Transferase 3 Months Z79.89 - [facility] drug therapy Creatinine 3 Months Z79.89 - [facility]) drug therapy C Reactive Protein 3 Months Z79.89 - [facility] drug therapy Erythrocyte Sedimentation Rate 3 Months Z79.89 - [facility] drug therapy Alanine Aminotransferase 3 Months Z79.89 - [facility] (current) drug therapy Medications: Refilled Cimzia (certolizumab pegol) 200 mg subcut Q2W 1 ea 5RF NS Coding Level of Care Code Est Pt Level 4 (23040) Diagnoses Psoriatic arthritis L40.50 [facility] (current) drug therapy Z79
[2025-08-05 13:36] VITALS: BP 110/80; PULSE 89; O2SAT 100; BMI 29.6
== END 2025-08-05 14:08 | disposition home or self-care (01) ==
LOC: HO.RHES 13:35
PROVIDERS: PCP Internal Medicine; Visit Provider Internal Medicine Rheumatology
DX: L40.50 Arthropathic psoriasis, unspecified (principal); Z79.899 Other long term (current) drug therapy
CPT/HCPCS: 99214